=== PATIENT | male | born 1975 | race Hispanic/Latino ===

== ENCOUNTER 2017-10-06 22:30 | Inpatient (IN) | payer OTHER ==
[2017-10-06] MEDS ORDERED: Acetaminophen 500 MG TAB ONE (23:07)
--- NOTE | 2017-10-06 23:44 | RAD ---
PORTABLE UPRIGHT FRONTAL CHEST: Date: 10/06/17 COMPARISON: None. HISTORY: Cough. FINDINGS: There is interstitial opacity in bilateral perihilar regions. There is a suggestion of asymmetric int erstitial and alveolar opacity within the left upper lobe. No large volume pleural effusion or pneumo thorax. IMPRESSION: Findings suggesting air space disease in the left upper lobe, suspicious for infectious pneumonitis o r aspiration. Recommend follow-up PA and lateral imaging of the chest following treatment. POS: [facility]
[2017-10-06 23:48] LABS: Hematocrit 47.4 % (42.0-52.0); Red Blood Cell (RBC) Count 5.32 mill/uL (4.70-6.10); White Blood Cell (WBC) Count 5.1 thou/uL (4.8-10.8)
[2017-10-07 00:03] LABS: #Eosinphils 0.1 thou/uL (0.0-0.7); #Monocytes 0.3 thou/uL (0.11-0.59); #Neutrophils 3.7 thou/uL (1.40-6.50); %Eosinophils 1.1 % (0.0-10.0); %Lymphocytes 19.5 % (21.0-51.0); %Monocytes 6.2 % (0.0-10.0); Mean Platelet Volume 9.4 fL (7.4-10.4)
[2017-10-07 00:05] LABS: Lactic Acid - Sepsis 1.6 mmol/L (0.5-2.2)
[2017-10-07 00:08] LABS: Bilirubin Small (Negative); Blood, Urine Negative (Negative); Glucose, Urine (Dipstick) Negative (Negative); Ketone, Urine 40 mg/dL (Negative); Nitrite Negative (Negative); Protein, Urine (Dipstick) Negative (Neg-Trace)
[2017-10-07 00:09] LABS: ALT (SGPT) 23 U/L (8-55); AST (SGOT) 46 U/L (5-34); Alkaline Phosphatase 77 U/L (40-150); Anion Gap 14 mmol/L (10-20); BUN (Urea Nitrogen) 9 mg/dL (8.9-20.6); Bilirubin, Total 1.4 mg/dL (0.2-1.2); CK (CPK) 26 U/L (30-200); Calc. Creatinine Clearance 0 mL/min (70-130); Calcium 8.1 mg/dL (7.8-10.44); Carbon Dioxide 16 mmol/L (22-29); Chloride 108 mmol/L (98-107); Estimated GFR-MDRD Greater than 90; Globulin 4.8 g/dL (2.4-3.5); Protein, Total 7.8 g/dL (6.0-8.3)
[2017-10-07 00:13] LABS: Troponin I Less than 0.010 ng/mL (< 0.028)
[2017-10-07] MEDS ORDERED: Azithromycin 500 MG VIAL ONE (01:03)
[2017-10-07] MEDS ORDERED: Ketorolac Tromethamine 30 MG/ML VIAL ONE (01:03)
[2017-10-07] MEDS ORDERED: Morphine 4 MG/ML VIAL ONE (02:30)
[2017-10-07 02:50] LABS: Modified Allen's Test POSITIVE; Sodium 142 mmol/L (135-148)
[2017-10-07 02:51] LABS: Mode NC; Vent NO
[2017-10-07] MEDS ORDERED: Piperacillin/Tazobactam 4.5 GM in Sodium Chloride 0.9% 100 ML IVPB SCH (03:30)
--- NOTE | 2017-10-07 03:36 | PDOC.EVN ---
Event Note - Event Note Event Note: I personally evaluated the patient and discussed the management with Drs. Bird and Jim. I have reviewed the written H&P and it is repeated by me. I agree with the History, Examination, Assessment and Plan documented above with any addition or exceptions noted below. 1.) Patient has pneumonia with severe sepsis. Influenza test is negative. MAP is 80 following 30ml/kg bolus. ABG reviewed: Respiratory alkalosis with metabolic acidosis. Hypoxemia despite 4L/min via NC. Lactate is normal. Wells score is <2. D-dimer is neg. CXR consistent with bilat pneumonia. No effusion noted. Patient tachypneic but able to talk in sentences. No accessory muscle use on exam. Empiric antibiotics given in ER. Will add zosyn for psuedomonas coverage. While patient may worsen to the point of requiring intubation, I think with better oxygenation his tachycardia and tachypnea will resolve. Switch to oxygen mask supplementation. IV fluids. DVT and GI prophylaxis. 2.) Hep C. Chronic. recheck HIV/TB, both were negative several years ago. Patient is incarcerated, so at increased risk.
[2017-10-07] MEDS ORDERED: Sodium Chloride 0.9% 1,000 ML IV SCH ×3 (03:49→05:30)
[2017-10-07] MEDS ORDERED: Acetaminophen 325 MG TAB PO PRN (03:49)
[2017-10-07] MEDS ORDERED: Ondansetron ODT 4 MG TAB SL PRN (03:49)
[2017-10-07] MEDS ORDERED: Ondansetron HCl/PF 4 MG/2 ML Vial IVP PRN (03:49)
[2017-10-07] MEDS ORDERED: cefTRIAXone\\ROCEPHIN 2 GM in Sodium Chloride 0.9% 100 ML IVPB SCH (04:00)
[2017-10-07] MEDS ORDERED: Azithromycin 500 MG in Sodium Chloride 0.9% 250 ML 250 ML IVPB SCH ×2 (04:00→04:30)
[2017-10-07] MEDS: Sodium Chloride 0.9% 1,000 ML IV SCH ×3 (04:07→20:04)
[2017-10-07 05:28] LABS: LegU Control Bar Appear? YES (CONTROL BAR); LegionellaU Control Bkground? CLEAR/WHITE (CLR/WHITE)
[2017-10-07 06:42] LABS: Oxyhemoglobin 95.1 % (94.0-97.0); Sodium 142 mmol/L (135-148)
[2017-10-07 06:43] LABS: Mode NRM; Modified Allen's Test NOT DONE; Vent NO
[2017-10-07 07:35] LABS: Strp pneuU Control Background? CLEAR/WHITE (CLR/WHITE); Strp pneumo Control Bar Appear YES (CONTROL BAR)
--- NOTE | 2017-10-07 07:55 | HP-2 ---
DATE OF ADMISSION: 10/07/2017 ATTENDING: Dr. Tomás Ellis CODE STATUS: Full. RESIDENT: Pamela Davis M.D. HISTORIAN: Patient. CHIEF COMPLAINT: Cough, shortness of breath and dyspnea. HISTORY OF PRESENT ILLNESS: A 41-year-old male with a chief complaint of cough, shortness of breath and dyspnea for 5 days. The patient endorses subjective fevers as well. He states sometimes when he coughs, he coughs up blood. He also endorses night sweats and decreased p.o. intake and vomiting wi th meals. The patient also endorsed some watery diarrhea. He denies a history of TB, COPD, blood cl ots or asthma. He states he feels like he had the flu. He states he was not actually tested for the flu. The patient also endorsed some back pain, stated that when he took a deep breath in and out, i t hurt. ER: The patient received 50 mg IV of Toradol, he received 2 mg of morphine strength. The patient go t 2 DuoNeb treatments, azithromycin 500 mg in the ER, normal saline 1 liter. He also received Tyleno l extra strength and he received 6 liters of normal saline and Rocephin 2 grams IV. PAST MEDICAL HISTORY: Hepatitis C. PAST SURGICAL HISTORY: None. ALLERGIES: No known drug allergies. MEDICATIONS: None. FAMILY HISTORY: None. SOCIAL HISTORY: Former smoker over 10 years ago. Drug history; former cocaine and heroin use. Jerson ed alcohol use. REVIEW OF SYSTEMS: GENERAL: Endorsed fevers, endorsed decreased appetite, endorsed night sweats, decreased p.o. intake. RESPIRATORY: Endorses cough, shortness of breath. Denied congestion. HEENT: Denied nasal congestion, rhinorrhea, or sore throat. CARDIOVASCULAR: Denied chest pain, palpitations. GI: Denied nausea, endorsed some vomiting and diarrhea. Denied constipation, abdominal pain. : Denied dysuria, incontinence. SKIN: Denied rashes, lesions. MUSCULOSKELETAL: Denied pain or tenderness. NEURO: No weakness or numbness. PHYSICAL EXAMINATION: VITAL SIGNS: Blood pressure 102/61, pulse 125-140, respiratory rate 38, T-max 100-102.9, pulse ox 90 % on 4 liters. Current weight 100 kilos. GENERAL: Alert and oriented x4. Mildly distressed, appropriately interactive. EYES: PERRLA, EOMI. Conjunctivae within normal limits. ENT: Nasal mucosa and oropharynx dry. NECK: Supple, no lymphadenopathy, no thyromegaly. CARDIOVASCULAR: Tachycardic. No murmurs appreciated. Normal S1 and S2. RESPIRATORY: Respiratory rate increased effort. Subcostal retractions. Clear to auscultation bilat erally. SKIN: Warm and dry. ABDOMEN: Soft, nontender to palpation. Positive bowel sounds in all 4 quadrants. No mass or disten tion. EXTREMITIES: No clubbing or cyanosis. No edema. MUSCULOSKELETAL: Structure within normal limits. Tone within normal limits. NEUROLOGIC: No focal deficits. GCS of 15. LABORATORY DATA: CBC, 5.1, 16.1, 47.4, 114. CMP: 135, 3.3, 108, 69.88, glucose 107, AST and ALT 46 and 23, alkaline phosphatase 77, total protei n 1.4, calcium 8.1, albumin 3, total bilirubin 1.4. TSH 2.7. Influenza A and B negative. Lactic acid 1.6. UA negative for blood, protein, leukocyte esterase, nitrites and glucose, positive for ketones. ABG; pH 7.413, pCO2 24.3, pO2 67. Chest x-ray: Interstitial opacity in bilateral perihilar region with asymmetric interstitial and alison eolar opacities of the left upper lobe. Infectious pneumonitis or aspiration. D-dimer less than 0.27. ASSESSMENT AND PLAN: 1. Mr. Gonsales is a 41-year-old male with a past medical history of hep C who endorses a 5-day hist ory of cough, shortness of breath and dyspnea. He was admitted for acute hypoxic respiratory failure and sepsis secondary to a left upper lobe pneumonia. He was given azithromycin and Rocephin in the ER, which were continued. Zosyn was also added for additional empiric coverage. A CBC and BMP were ordered to be rechecked tomorrow morning. Blood and urine cultures were sent. He was provided with total of 6 liters in the ER. An additional fluid bolus was given once he reached the ICU unit. He w as also started on maintenance fluids of 170 mL an hour which also accounted for insensible . A repeat chest x-ray was ordered for the morning, Interferon gold was also ordered. Repeat ABG was or dered and the patient was placed on nonrebreather. HIV and RPR were also ordered. 2. Tinea corporis, Clotrimazole was ordered. 3. DVT prophylaxis; Lovenox. 4. Gastrointestinal prophylaxis, Protonix. DISPOSITION AND LENGTH OF STAY: 3-4 days. Symptomatic medications be provided. History and physical exam as well as management discussed with Dr. Ellis.
[2017-10-07] MEDS: Piperacillin/Tazobactam 3.375 GM in Sodium Chloride 0.9% 100 ML IVPB SCH ×4 (08:46→20:04)
[2017-10-07] MEDS: Enoxaparin Sodium 40 MG/0.4 ML SYRINGE SC SCH (08:47)
[2017-10-07] MEDS ORDERED: FLU VACC QS2017-18 36 mo. & older 0.5 ML SYRINGE IM ONE (09:00)
--- NOTE | 2017-10-07 09:15 | CON ---
DATE OF CONSULTATION: 10/07/2017 A 41-year-old inmate from [place], [place] presented with fever, chills, sweats, cough, and pneumonia. This morning he is hypoxic and he was placed on 50% Ventimask. Sats are 100%. He is having chills a nd sweats. VITAL SIGNS: Pulse is 110, blood pressure 130/80, O2 sat 100%. He is having difficulty breathing. He smoked in the past for 15 years, quit smoking many years ago. [facility]. He had previous history of pneumonia, but no h istory of TB or asthma. He said he has been coughing up some green sputum. PAST MEDICAL HISTORY: Pertinent otherwise for substance abuse, hepatitis C. Previous substance abus e and previous tobacco abuse. LIST OF MEDICATIONS: None apparently. ALLERGIES: None. REVIEW OF SYSTEMS: Unremarkable. PHYSICAL EXAMINATION: VITAL SIGNS: Saturations 100%, pulse 100, blood pressure 106/58, respirations 18. CHEST: Chest revealed decreased breath sounds, bilateral rhonchi. CARDIAC: Sinus tachycardia. ABDOMEN: Soft, no masses. LABORATORY: White count 5000, H&H 16 and 47, platelet count 115, pO2 is 93, pCO2 37.37, on 80%. His electrolytes are normal. Sodium is 135. X-ray shows bilateral pneumonia. IMPRESSION: 1. Pneumonia with respiratory failure. 2. Hepatitis C. 3. Previous tobacco and alcohol abuse. PLAN: I agree with present antibiotics. Steroids for community-acquired pneumonia to hasten resolut ion. Levaquin. We will follow while in the ICU. If his condition gets worse he may require intubation. Forty-five minutes critical care time.
--- NOTE | 2017-10-07 11:30 | RAD ---
PORTABLE UPRIGHT FRONTAL CHEST RADIOGRAPH: 10/07/2017 HISTORY: Pneumonia. COMPARISON: 10/06/2017 FINDINGS: Since the prior examination, there has been worsening of air space disease within the left perihilar region and left upper lobe. There is also new patchy air space disease in the right lung centrally a nd in the medial left base. No pneumothorax. No large volume pleural effusion. IMPRESSION: Nonspecific bilateral air space disease, left greater than right, worsened. Findings may signify an infectious process or pulmonary edema. Follow-up imaging to resolution advised. POS: [facility]
[2017-10-07] MEDS: Clotrimazole 1 % Cream 30 GM TUBE TOP SCH ×2 (12:55→20:05)
--- NOTE | 2017-10-07 17:26 | PDOC.EVN ---
Event Note - Event Note Event Note: Recent central line placement was performed without difficulty. Upon reviewing CXR for placement it is noted in the right Subclavian vein (placement verified by ultrasound; normal pulses). We discussed the need to reposition this due to risk for clotting and the patient refused. After discussing need for removal he also voiced that he would prefer to have it in place for blood draws. At this point I believe his prognosis is guarded and feel worsening of his respiratory status is likely, with tenuous IV access and the need for additional blood draws overnight, and I feel the benefit outweighs the risk of very short term malposition of the CVC and planned PICC placement as soon as possible. The patient is in agreement, and I will discuss this case with the oncoming attending, Dr. Ellis.
[2017-10-07] MEDS ORDERED: Ketorolac Tromethamine 30 MG/ML VIAL IVP SCH (17:45)
--- NOTE | 2017-10-07 19:39 | RAD ---
AP CHEST: History: Status post central line placement. Date: 10-07-17 Comparison: 10-07-17 FINDINGS: AP chest demonstrates cardiomegaly. Pulmonary vascular congestion is seen. There is diffuse airspace opacities throughout the lungs concerning for possible pulmonary edema or bilateral pneumonia. There has been placement of a right subclavian central line. The recently placed line migrates upward s over the right neck, distal tip not visualized. It certainly is not within the superior vena cava r ight atrium, but is upward migrating. IMPRESSION: 1. No evidence of right sided hemo or pneumothorax. 2. Distal aspect of the central line is out of the field in the right neck. POS: [facility]
--- NOTE | 2017-10-07 20:33 | CON ---
DATE OF CONSULTATION: 10/07/2017 REASON FOR CONSULTATION: Recent HIV infection with fever. HISTORY OF PRESENT ILLNESS: A 41-year-old patient who is incarcerated at a local state nursing home I believe near [place], who has a history of hepatitis C and has been ill for the past 5 days approximately with cough, dyspnea, and fever sometimes with hemoptysis, also with night sweats and liquid stool. No headaches, no visual symptoms. No sore throat, patient has chronic pruritic eruption in the distal upper extremities and no abdominal pain, no genitourinary symptoms, no joint symptoms. PAST MEDICAL HISTORY: Chronic hepatitis C, reportedly had a negative HIV test last year at the unit or maybe two years ago at the unit. PAST SURGICAL HISTORY: Negative surgical history. ALLERGIES: None. CURRENT MEDICATIONS: Include azithromycin, levofloxacin, and Zosyn. FAMILY HISTORY: Not available. SOCIAL HISTORY: Former smoker, former use of heroin and cocaine. 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 PHYSICAL EXAMINATION: VITAL SIGNS: T-max 99.5, blood pressure 128/88, pulse 115, respiratory rate 26 , O2 sat 99%. SKIN: Shows multiple tattoos. No areas of skin breakdown. The patient has a papular erythematous lesions in the distal aspect of his right and left hands and distal forearms which are chronic. Also, there was evidence of diffuse onychomycosis pretty much in all toenails and fingernails. No lymphadenopathy. HEENT: Ocular movements are conjugate. Oral cavity moist. NECK: Supple. LUNGS: With symmetric clear breath sounds. HEART: S1, S2, regular rate without murmurs. LUNGS: Pretty clear to auscultation and percussion. ABDOMEN: Soft and not distended. No organomegaly, bowel or bladder distention. GENITOURINARY: Normal. EXTREMITIES: No joint inflammatory activity. There is tenderness on palpation of the neck which has been there for the past 4-5 days approximately. NEUROLOGIC: He is oriented, follows commands. LABORATORY DATA: White cell count 5.1, hemoglobin 16, platelets 114, 72% neutrophils, 19% lymphocytes. Total lymphocyte count 1000 and pH 7.37, pCO2 of 30, pO2 of 93 with oxygen supplementation. Sodium 135, potassium 3.3, creatinine 0.88. Lactic acid 1.6, calcium 8.1. Bilirubin 1.4, AST 46, ALT 23, alkaline phosphatase 77, CK 26. Albumin 3.0. TSH 2.71. Urinalysis with negative blood. HIV, 1 and 2 antigen and antibodies with reflex confirmation pending. Legionella pneumophila and strep pneumoniae antigen negative thus far. Syphilis screen negative. Chest x-ray with airspace disease, left upper lobe with worsening. ASSESSMENT: Newly identified human immunodeficiency virus infection with fairly acute onset of respiratory symptoms, some hemoptysis and abnormal chest x -ray with a left upper lobe infiltrate. DISCUSSION: Differential diagnosis includes acute community-acquired pneumonia with the usual pathogens plus the possibility of tuberculosis as a significant concern. Fungal infection including pneumocystis pneumonia is another possibility. His total lymphocyte count is going to be depressed in an acute inflammatory process, but still it predicts CD4 cell count less than 200, so he was probably in a more advanced stage of his HIV infection. The skin lesions in the hands could be secondary to hepatitis C with cryoglobulinemia or porphyria cutanea tarda, Quantiferon, sputum for AFB, Cryptococcus antigen, CD4 cell count, HIV viral load, sputum for pneumocystis, PCR and Fungitel assay. Thromboembolism is another concern, but that is less likely. MTDD
[2017-10-07] MEDS: Ibuprofen 800 MG TAB PO PRN (23:45)
[2017-10-08] MEDS: Morphine 2 MG/ML SYRINGE SLOW IVP PRN ×4 (00:50→18:10)
[2017-10-08] MEDS: Piperacillin/Tazobactam 3.375 GM in Sodium Chloride 0.9% 100 ML IVPB SCH ×6 (01:26→20:55)
[2017-10-08] MEDS: Sodium Chloride 0.9% 1,000 ML IV SCH ×2 (05:00→21:00)
[2017-10-08 06:09] LABS: ALT (SGPT) 16 U/L (8-55); AST (SGOT) 37 U/L (5-34); Alkaline Phosphatase 58 U/L (40-150); Anion Gap 9 mmol/L (10-20); BUN (Urea Nitrogen) 10 mg/dL (8.9-20.6); Bilirubin, Total 1.2 mg/dL (0.2-1.2); Calc. Creatinine Clearance 170 mL/min (70-130); Calcium 7.2 mg/dL (7.8-10.44); Carbon Dioxide 20 mmol/L (22-29); Chloride 112 mmol/L (98-107); Estimated GFR-MDRD Greater than 90; Globulin 4.4 g/dL (2.4-3.5)
[2017-10-08 06:22] LABS: #Lymphocytes 0.6 thou/uL (1.20-3.40); #Monocytes 0.1 thou/uL (0.11-0.59); #Neutrophils 1.8 thou/uL (1.40-6.50); %Basophils 0.4 % (0.0-1.0); %Lymphocytes 24.8 % (21.0-51.0); %Monocytes 2.2 % (0.0-10.0); Hematocrit 42.8 % (42.0-52.0); Mean Platelet Volume 9.1 fL (7.4-10.4); Red Blood Cell (RBC) Count 4.73 mill/uL (4.70-6.10); White Blood Cell (WBC) Count 2.5 thou/uL (4.8-10.8)
--- NOTE | 2017-10-08 07:29 | OP ---
DATE OF ADMISSION: 10/07/2017 PREOPERATIVE DIAGNOSIS: Need for frequent lab draws and difficult IV access. POSTOPERATIVE DIAGNOSIS: Need for frequent lab draws and difficult IV access. PROCEDURE: Ultrasound-guided right internal jugular central venous catheter placement. Surgeon: Ishmael Hawkins MD; Chance Sam MD Anesthesia: 10 cc 1% lido without PROCEDURE IN DETAIL: The patient was prepped and draped in dorsal supine position. Under ultrasound guidance, the skin was anesthetized, accessed, and then a central triple-lumen central venous catheter was placed under ultrasound guidance using modified Seldinger technique prior to cannulation for dilation. Ultrasound was used to confirm intraluminal placement in the internal jugular vein of the wire. This was subsequently tied down and the chest x-ray was pending at the time of this diagnosis. No obvious immediate complications and this operative report will be addended if there are any updates. See event note from 10/07 by me for update of malposition. In brief, malposition to the right subclavian vein. Discussed with patient and he refuses both repositioning, replacement, or removal. Informed of risks, patient voices understanding. I personally feel short term benefit greater than risk due to the acuity of his condition. FAVIO
--- NOTE | 2017-10-08 07:52 | PDOC.FM ---
- Subjective Subjective: Patient states that his breathing has improved compared to prior to admission. He complains of pleuritic chest pain. - Objective MAR Reviewed: Yes Vital Signs & Weight: Vital Signs (12 hours) Temp Pulse Resp Pulse Ox 10/08/17 05:00 98.1 F 10/08/17 03:03 98 10/08/17 01:00 98.7 F 10/07/17 21:00 98.5 F 10/07/17 19:54 98.7 F 109 H 30 H 100 Weight Weight 102.4 kg Most Recent Monitor Data Heart Rate from ECG 102 NIBP 146/92 NIBP BP-Mean 102 Respiration from ECG 34 SpO2 98 I&O: 10/07/17 10/08/17 10/09/17 06:59 06:59 06:59 Intake Total 255 4578 Output Total 1150 3601 Balance -895 977 Result Diagrams: 10/08/17 05:25 10/08/17 05:25 <Vani Jo - Last Filed: 10/08/17 13:51> - Objective Vital Signs & Weight: Vital Signs (12 hours) Temp Pulse Resp Pulse Ox 10/08/17 16:00 97.6 F 10/08/17 12:00 97.4 F L 10/08/17 08:08 96 10/08/17 07:19 98.5 F 100 30 H 95 10/08/17 07:00 98.1 F Weight Weight 102.4 kg Most Recent Monitor Data Heart Rate from ECG 96 NIBP 149/86 NIBP BP-Mean 106 Respiration from ECG 8 SpO2 96 I&O: 10/07/17 10/08/17 10/09/17 06:59 06:59 06:59 Intake Total 255 4578 900 Output Total 1150 3601 870 Balance -895 977 30 Result Diagrams: 10/08/17 05:25 10/08/17 05:25 <Tatiana Aviles - Last Filed: 10/08/17 17:29> Phys Exam - Physical Examination Constitutional: NAD Respiratory: clear to auscultation bilateral Cardiovascular: RRR Gastrointestinal: soft, non-tender Musculoskeletal: no edema Psychiatric: normal affect, A&O x 3 <Vani Jo - Last Filed: 10/08/17 13:51> Dx/Plan (1) Acute respiratory failure with hypoxia Code(s): J96.01 - ACUTE RESPIRATORY FAILURE WITH HYPOXIA Status: Acute Plan: Improved. Pt currently maintaining saturations with 40% Venti mask. Will wean oxygen as tolerated (2) Atypical pneumonia Code(s): J18.9 - PNEUMONIA, UNSPECIFIED ORGANISM Status: Acute Plan: Will continue broad spectrum treatment. Respiratory culture/GS, PJP studies, quantiferon gold pending. (3) HIV (human immunodeficiency virus infection) Status: Acute Plan: New diagnosis. CD4 count pending. Will await studies. Dr. Waldrop consulted. (4) Severe sepsis Code(s): A41.9 - SEPSIS, UNSPECIFIED ORGANISM; R65.20 - SEVERE SEPSIS WITHOUT SEPTIC SHOCK Status: Resolved Plan: Improving. Vitals stable. UOP adequate. (5) Hepatitis C Code(s): B19.20 - UNSPECIFIED VIRAL HEPATITIS C WITHOUT HEPATIC COMA Status: Acute QualifierTitle: Viral hepatitis chronicity: chronic <Vani Jo - Last Filed: 10/08/17 13:51> Attending Addendum - Attending Addendum I personally evaluated the patient and discussed the management with Dr. Jo I agree with the History, Examination, Assessment and Plan documented above with any addition or exceptions noted below- Patient feeling a little better; SOB improved; occasional cough. No appetite. Afebrile VSS A/P: 1) B/l Pneumonia - less tachypenic today; continue current abx; appreciate pulmonary and ID input , 2) Newly diagnosed HIV- awaiting confirmatory test as well as CD4 count; plans as per ID, 3) Acute respiratory failure secondary to pneumonia- continue supportive care. <Tatiana Aviles - Last Filed: 10/08/17 17:29>
[2017-10-08] MEDS ORDERED: Ketorolac Tromethamine 30 MG/ML VIAL IVP SCH (08:00)
--- NOTE | 2017-10-08 08:01 | RAD ---
AP VIEW OF THE CHEST: INDICATION: History of pneumonia. COMPARISON: Prior exam dated 10/07/17. IMPRESSION: Airspace opacities involving both lungs are similar. A right IJ central venous catheter projecting i n the region of the right subclavian vein is unchanged in position. Recommend repositioning. Small pleural effusions persist. No pneumothorax is evident. POS: [facility]
[2017-10-08] MEDS: Enoxaparin Sodium 40 MG/0.4 ML SYRINGE SC SCH (08:28)
[2017-10-08] MEDS: Clotrimazole 1 % Cream 30 GM TUBE TOP SCH ×2 (08:37→20:55)
--- NOTE | 2017-10-08 12:00 | PRG ---
DATE OF SERVICE: 10/08/2017 SUBJECTIVE: He is just short of breath, slight cough. He has got no chest pain. OBJECTIVE: VITAL SIGNS: Sats are 96, pulse 104, blood pressure 137/91, respiration 32. CHEST: Reveals decreased breath sounds, no wheezing. CARDIAC: Normal S1, S2. LABORATORY DATA: Shows a white count of 2.4, H&H is 14 and 42, platelet count 106. His chemistry p rofile shows his electrolytes are normal. TSH is normal. He had serology done, which shows HIV pos itive. IMPRESSION: 1. Respiratory failure, bilateral pneumonia. 2. Human immunodeficiency virus and hepatitis, on steroids, Zosyn, Levaquin. PLAN: If his condition does not get any better, he may be intubated. Await sputum results. We will follow.
--- NOTE | 2017-10-08 12:31 | OP ---
DATE OF SERVICE: 10/08/2017 PREOPERATIVE DIAGNOSIS: Malpositioned central venous catheter placed in the right internal jugular vein, deviated to the right subclavian vein. POSTOPERATIVE DIAGNOSIS: Right internal jugular central venous catheter placed in the correct location. PROCEDURE: Central venous catheter placement. SURGEON: Artur Hawkins MD Resident: Vani Jo M.D. ANESTHESIA: Lidocaine 1% without epinephrine 5 mL INDICATIONS AND CONSENT: The patient was again consented for central venous catheter placement. We had again a discussion of the malpositioned central catheter. He this morning was amenable to repositioning.. PROCEDURE IN DETAIL: Under the usual sterile conditions including ChloraPrep x3 , a drape, cap, gown and mask, the previous catheter ties were removed. A wire was placed and the catheter withdrawn. Subsequently, a new central venous catheter was placed over the wire and confirmed and the SVC on x-ray. It was subsequently tied down. A Biopatch was placed. Tegaderm was placed and formal read of the x-ray was pending at the time of this dictation. No immediate complications. FAVIO
--- NOTE | 2017-10-08 13:27 | RAD ---
ONE VIEW CHEST: HISTORY: Status post central line placement. COMPARISON: 10/08/2017 FINDINGS: Portable upright chest demonstrates repositioning of what is presumed to be a right-sided internal ju gular central venous catheter. The distal tip now projects over the superior vena cava. Normal card iac silhouette. Patchy interstitial and alveolar opacities. The degree of opacification has not zeke nged. Limited evaluation of the lung apices. No definite evidence of pneumothorax. IMPRESSION: 1. Interval repositioning of right-sided central venous catheter. 2. Persistent interstitial and alveolar opacities. 3. Limited evaluation of the lung apices due to over-penetration. 4. No obvious pneumothorax. POS: [facility]
[2017-10-08] MEDS: Ibuprofen 800 MG TAB PO PRN (21:05)
[2017-10-09] MEDS: Morphine 2 MG/ML SYRINGE SLOW IVP PRN ×2 (00:04→05:23)
[2017-10-09] MEDS: Piperacillin/Tazobactam 3.375 GM in Sodium Chloride 0.9% 100 ML IVPB SCH ×6 (00:04→20:28)
[2017-10-09 04:58] LABS: #Lymphocytes 0.6 thou/uL (1.20-3.40); #Monocytes 0.2 thou/uL (0.11-0.59); #Neutrophils 5.5 thou/uL (1.40-6.50); %Basophils 0.2 % (0.0-1.0); %Eosinophils 0.1 % (0.0-10.0); %Lymphocytes 9.6 % (21.0-51.0); %Monocytes 2.4 % (0.0-10.0); Hematocrit 43.9 % (42.0-52.0); Mean Platelet Volume 8.7 fL (7.4-10.4); Red Blood Cell (RBC) Count 4.88 mill/uL (4.70-6.10); White Blood Cell (WBC) Count 6.2 thou/uL (4.8-10.8)
[2017-10-09] MEDS: Sodium Chloride 0.9% 1,000 ML IV SCH (05:17)
[2017-10-09 05:29] LABS: ALT (SGPT) 15 U/L (8-55); AST (SGOT) 32 U/L (5-34); Alkaline Phosphatase 55 U/L (40-150); Anion Gap 8 mmol/L (10-20); BUN (Urea Nitrogen) 14 mg/dL (8.9-20.6); Calc. Creatinine Clearance 176 mL/min (70-130); Calcium 7.5 mg/dL (7.8-10.44); Carbon Dioxide 20 mmol/L (22-29); Chloride 112 mmol/L (98-107); Estimated GFR-MDRD Greater than 90; Globulin 4.2 g/dL (2.4-3.5); Protein, Total 6.8 g/dL (6.0-8.3)
--- NOTE | 2017-10-09 07:45 | PDOC.FM ---
- Subjective Subjective: Patient doing better. His dyspnea has improved compared to prior. No adverse events overnight. - Objective MAR Reviewed: Yes Vital Signs & Weight: Vital Signs (12 hours) Temp Pulse Resp Pulse Ox 10/09/17 07:32 98.1 F 98 16 94 L 10/09/17 04:18 97 10/09/17 04:00 98.4 F 10/09/17 00:00 98.4 F 10/08/17 20:00 98.4 F 100 25 H 98 Weight Weight 101.8 kg Most Recent Monitor Data Heart Rate from ECG 84 NIBP 119/80 NIBP BP-Mean 89 Respiration from ECG 0 SpO2 97 I&O: 10/08/17 10/09/17 10/10/17 06:59 06:59 06:59 Intake Total 4578 3800 Output Total 3601 2120 Balance 977 1680 Result Diagrams: 10/09/17 04:12 10/09/17 04:12 <Vani Jo - Last Filed: 10/09/17 07:43> - Objective Vital Signs & Weight: Vital Signs (12 hours) Temp Pulse Resp BP Pulse Ox 10/09/17 10:11 98.2 F 113 H 18 95 10/09/17 09:40 98.2 F 113 H 18 131/90 95 10/09/17 08:00 98.3 F 10/09/17 07:32 98.1 F 98 16 94 L 10/09/17 04:18 97 10/09/17 04:00 98.4 F 10/09/17 00:00 98.4 F Weight Weight 101.8 kg Most Recent Monitor Data Heart Rate from ECG 120 NIBP 146/97 NIBP BP-Mean 108 Respiration from ECG 19 SpO2 97 I&O: 10/08/17 10/09/17 10/10/17 06:59 06:59 06:59 Intake Total 4578 3800 981 Output Total 3601 2120 750 Balance 977 1680 231 Result Diagrams: 10/09/17 04:12 10/09/17 04:12 <Tatiana Aviles - Last Filed: 10/09/17 10:45> Phys Exam - Physical Examination Constitutional: NAD HEENT: PERRLA Respiratory: clear to auscultation bilateral Cardiovascular: RRR Gastrointestinal: soft, non-tender Musculoskeletal: no edema Neurological: moves all 4 limbs <Vani Jo - Last Filed: 10/09/17 07:43> Dx/Plan (1) Acute respiratory failure with hypoxia Code(s): J96.01 - ACUTE RESPIRATORY FAILURE WITH HYPOXIA Status: Acute Plan: Improved. Pt currently maintaining saturations with 4L NC Will wean oxygen as tolerated (2) Atypical pneumonia Code(s): J18.9 - PNEUMONIA, UNSPECIFIED ORGANISM Status: Acute Plan: Will continue broad spectrum treatment. Respiratory culture/GS, PJP studies, quantiferon gold pending. (3) HIV (human immunodeficiency virus infection) Status: Acute Plan: New diagnosis. CD4 count pending. Will await studies. Dr. Waldrop consulted. (4) Hepatitis C Code(s): B19.20 - UNSPECIFIED VIRAL HEPATITIS C WITHOUT HEPATIC COMA Status: Acute QualifierTitle: Viral hepatitis chronicity: chronic <Vani Jo - Last Filed: 10/09/17 07:43> Attending Addendum - Attending Addendum I personally evaluated the patient and discussed the management with Dr. Jo I agree with the History, Examination, Assessment and Plan documented above with any addition or exceptions noted below- Patient feeling better; SOB improved. Afebrile VSS A/P: 1) Acute respiratory failure- improved; continue supportive care; wean O2 as tolerated. 2) Pneumonia- continue IV abx; wean O2 as tolerated. 3) HIV (+)- awaiting CD4 count and other tests. <Tatiana Aviles - Last Filed: 10/09/17 10:45>
[2017-10-09] MEDS: Enoxaparin Sodium 40 MG/0.4 ML SYRINGE SC SCH (08:09)
[2017-10-09] MEDS: Clotrimazole 1 % Cream 30 GM TUBE TOP SCH ×2 (08:11→20:25)
[2017-10-09] MEDS: Ibuprofen 800 MG TAB PO PRN (08:17)
--- NOTE | 2017-10-09 09:08 | RAD ---
SINGLE VIEW OF THE CHEST: Comparison: 10-08-17 History: Pneumonia. FINDINGS: Single view of the chest shows a cardiomediastinal silhouette which is upper limits of normal in size . There is a central venous catheter with its tip in the superior vena cava. Multifocal opacities are seen in the lungs, unchanged, consistent with multifocal pneumonia. IMPRESSION: Stable multifocal pneumonia. POS: [facility]
--- NOTE | 2017-10-09 11:49 | PRG ---
DATE OF SERVICE: 10/09/2017 SUBJECTIVE: This morning, he is awake, alert, responsive. OBJECTIVE: VITAL SIGNS: Sats are 4 liters 97%, blood pressure 119/80, temperature 98. CHEST: Chest reveals decreased breath sounds, no wheezing. CARDIAC: Normal S1, S2. No gallops. ABDOMEN: Soft, no masses. LABORATORY DATA: White count 6000, H&H is 14 and 43, platelet count 130. Electrolytes are normal. Albumin is 2.6. X-RAY FINDINGS: X-ray shows improvement in bilateral pulmonary infiltrates. IMPRESSION: 1. Bilateral bronchopneumonia. 2. Human immunodeficiency virus. 3. Hepatitis C. PLAN: He can probably be transferred out of the ICU. His sputum was nondiagnostic. I may consider switching him over to Levaquin. Continue steroids, supportive care. We will follow.
[2017-10-09 13:27] LABS: Absolute CD4 8 /uL (359-1519); Lymphocytes/Gated Cell Count 0.5 x10E3/uL (0.7-3.1)
[2017-10-09] MEDS ORDERED: ISOVUE-370 76%-LOCM 1 ML ONE (13:56)
[2017-10-09 14:21] LABS: HIV 1 Antibody Multi-Spot Positive (Negative); HIV 2 Antibody Multi-Spot Negative (Negative)
[2017-10-09] MEDS: Raltegravir Potassium 400 MG TAB PO SCH (20:27)
[2017-10-09] MEDS: Morphine 4 MG/ML VIAL SLOW IVP PRN (20:27)
--- NOTE | 2017-10-09 21:44 | CT ---
CT OF CHEST WITH CONTRAST 10/09/17 HISTORY: Multifocal bilateral pneumonia. FINDINGS: Diffuse abnormal alveolar opacification present within each lung in addition to interstitial septal t hickening. The thoracic aorta is nonaneurysmal. There is no significant effusion or evidence of pneum othorax. Regional skeletal structures are intact. No thoracic adenopathy. Prominence of the spleen is noted within the imaged upper abdomen. Partially imaged right internal jugular venous catheter is se en. Incidental note of chronic, corticated nondisplaced fracture deformity involving posterior right 7th rib fracture. IMPRESSION: Diffuse abnormal alveolar opacities of each lung compatible with provided clinical history of atypica l pneumonia. There is no associated effusion of significance or pneumothorax. Recommend radiographic followup to resolution. POS: [facility]
--- NOTE | 2017-10-09 21:59 | PRG ---
DATE OF SERVICE: 10/09/2017 SUBJECTIVE: Still dyspneic and coughing sometimes with some sputum production, light yellow. No hem optysis, no headaches, visual symptoms or abdominal pain. No chest pain. Voiding without difficulty . Some diarrhea. OBJECTIVE: VITAL SIGNS: T-max 98.4, BP 129/86, pulse 100-113, breathing at 24 times a minute, O2 sat 91% with 5 liters nasal cannula. HEENT: Ocular movements are conjugate. Oral cavity moist. No thrush. NECK: Supple. LUNGS: Symmetric air entry. No obvious crackles or wheezing, diminished breath sounds at bases. CARDIOVASCULAR: S1, S2, regular rate. ABDOMEN: Soft and not distended. EXTREMITIES: Moves all extremities equally. LABORATORY DATA: White cell count 6.2, hemoglobin 14.8, platelets 130, 87% neutrophils. Sodium 137, creatinine 0.79. Liver profile normal. Albumin 2.6. CD4 cell count 8. Pneumocystis smear was neg ative. The pneumocystis DNA PCR send-out test has not been collected. Fungitell is pending. Quanti feron is pending. ASSESSMENT: Newly identified HIV infection with severe immunosuppression and CD4 less than 50. Diff use multifocal pneumonitis without clear-cut improvement thus far. Patient is on for fairly high dos es of corticosteroids which are suppressing inflammatory response. Pneumocystis still in the differe ntial diagnosis, the sputum direct smear has a very low sensitivity and PCR tests is a better test, b ut sample has not been collected, insufficient amount was submitted to test yet. We will obtain a CT of chest and we will consider starting antipneumocystis therapy soon. May need BAL with bronchoalve olar lavage. Check cryptococcus antigen, histoplasma antigen and CMV DNA PCR.
[2017-10-10] MEDS: Ibuprofen 800 MG TAB PO PRN ×2 (01:03→08:28)
[2017-10-10] MEDS: Piperacillin/Tazobactam 3.375 GM in Sodium Chloride 0.9% 100 ML IVPB SCH ×6 (01:03→21:04)
[2017-10-10] MEDS: Morphine 4 MG/ML VIAL SLOW IVP PRN ×4 (01:23→21:06)
[2017-10-10 05:54] LABS: #Lymphocytes 0.7 thou/uL (1.20-3.40); #Monocytes 0.2 thou/uL (0.11-0.59); #Neutrophils 4.4 thou/uL (1.40-6.50); %Basophils 0.1 % (0.0-1.0); %Lymphocytes 12.8 % (21.0-51.0); %Monocytes 4.5 % (0.0-10.0); Hematocrit 42.8 % (42.0-52.0); Mean Platelet Volume 8.9 fL (7.4-10.4); Red Blood Cell (RBC) Count 4.82 mill/uL (4.70-6.10); White Blood Cell (WBC) Count 5.3 thou/uL (4.8-10.8)
[2017-10-10 06:01] LABS: ALT (SGPT) 19 U/L (8-55); AST (SGOT) 33 U/L (5-34); Alkaline Phosphatase 46 U/L (40-150); Anion Gap 7 mmol/L (10-20); BUN (Urea Nitrogen) 18 mg/dL (8.9-20.6); Bilirubin, Total 1.1 mg/dL (0.2-1.2); Calc. Creatinine Clearance 171 mL/min (70-130); Carbon Dioxide 23 mmol/L (22-29); Chloride 111 mmol/L (98-107); Estimated GFR-MDRD Greater than 90; Protein, Total 6.6 g/dL (6.0-8.3)
--- NOTE | 2017-10-10 07:10 | PDOC.FM ---
- Subjective Subjective: Patient states that his dyspnea is stable. No adverse events overnight. - Objective MAR Reviewed: Yes Vital Signs & Weight: Vital Signs (12 hours) Temp Pulse Resp BP Pulse Ox 10/10/17 04:00 97.4 F L 76 20 138/83 97 10/10/17 00:00 97.7 F 88 20 153/94 H 97 10/09/17 20:00 97.9 F 92 18 137/93 H 93 L Weight Weight 101.8 kg Most Recent Monitor Data Heart Rate from ECG 120 NIBP 146/97 NIBP BP-Mean 108 Respiration from ECG 19 SpO2 97 I&O: 10/09/17 10/10/17 10/11/17 06:59 06:59 06:59 Intake Total 3800 1461 Output Total 2120 750 Balance 1680 711 Result Diagrams: 10/10/17 05:15 10/10/17 05:15 <Vani Jo - Last Filed: 10/10/17 12:19> - Objective Vital Signs & Weight: Vital Signs (12 hours) Temp Pulse Resp BP Pulse Ox 10/10/17 08:00 97.5 F L 84 20 95 10/10/17 07:45 97.5 F L 84 20 155/96 H 98 Weight Weight 101.8 kg Most Recent Monitor Data Heart Rate from ECG 120 NIBP 146/97 NIBP BP-Mean 108 Respiration from ECG 19 SpO2 97 I&O: 10/09/17 10/10/17 10/11/17 06:59 06:59 06:59 Intake Total 3800 1461 480 Output Total 2120 750 Balance 1680 711 480 Result Diagrams: 10/10/17 05:15 10/10/17 05:15 <Tatiana Aviles - Last Filed: 10/10/17 18:01> Phys Exam - Physical Examination Constitutional: NAD Respiratory: clear to auscultation bilateral Cardiovascular: RRR Gastrointestinal: soft, non-tender Musculoskeletal: no edema <Vani Jo - Last Filed: 10/10/17 12:19> Dx/Plan (1) Acute respiratory failure with hypoxia Code(s): J96.01 - ACUTE RESPIRATORY FAILURE WITH HYPOXIA Status: Acute Plan: Resolving. Pt currently maintaining saturations with 4L NC Will wean oxygen as tolerated (2) Atypical pneumonia Code(s): J18.9 - PNEUMONIA, UNSPECIFIED ORGANISM Status: Acute Plan: Will continue broad spectrum treatment. Treatment with IV bactrim and PO prednisone started to cover for PJP (3) AIDS (acquired immunodeficiency syndrome), CD4 <=200/<=14% Code(s): B20 - HUMAN IMMUNODEFICIENCY VIRUS [HIV] DISEASE Status: Chronic Plan: CD4 count 8. Pt started on antiretroviral therapy, by Dr. Waldrop. Pt on currently on daily PO levaquin for pneumonia which should be sufficient for MAC prophylaxis. Will watch for immune reconstitution syndrome. (4) Hepatitis C Code(s): B19.20 - UNSPECIFIED VIRAL HEPATITIS C WITHOUT HEPATIC COMA Status: Acute QualifierTitle: Viral hepatitis chronicity: chronic Plan: Not currently receiving treatment. - Plan Plan: Disposition: stable. <Vani Jo - Last Filed: 10/10/17 12:19> Attending Addendum - Attending Addendum I personally evaluated the patient and discussed the management with Dr. Jo I agree with the History, Examination, Assessment and Plan documented above with any addition or exceptions noted below- Patient reports decreased SOB. Afebrile VSS A/P: 1) Acute respiratory failure secondary to pneumonia- resolving ; continue to wean O2 as tolerated, 2) Bilateral pneumonia- cultures negative to date; PCP PCR ordered; Continue levaquin and bactrim; wean O2 as tolerated, 3 ) Newly diagnosed HIV- appreciate assistance from ID; started on antiretroviral therapy; CD4 = 8. CMV and Toxo pending <Tatiana Aviles - Last Filed: 10/10/17 18:01>
[2017-10-10] MEDS: Emtricitabine/Tenofovir 200-300 MG TAB PO SCH (08:27)
[2017-10-10] MEDS: Raltegravir Potassium 400 MG TAB PO SCH ×2 (08:27→21:05)
--- NOTE | 2017-10-10 08:27 | RAD ---
PORTABLE CHEST: History: Pneumonia. Follow up. Comparison: 10-09-17 FINDINGS/IMPRESSION: Bilateral lung infiltrates again noted without significant change from yesterday. POS: [facility]
[2017-10-10] MEDS: Clotrimazole 1 % Cream 30 GM TUBE TOP SCH ×2 (08:28→21:05)
[2017-10-10] MEDS: Enoxaparin Sodium 40 MG/0.4 ML SYRINGE SC SCH (08:28)
--- NOTE | 2017-10-10 10:13 | PRG ---
DATE OF SERVICE: 10/10/2017 SUBJECTIVE: Caleb Gonsales this morning he is better. He is less short of breath and less cough. He was started on Bactrim yesterday, which probably is appropriate. PHYSICAL EXAMINATION: VITAL SIGNS: Blood pressure 150/96, sats 98%, temperature 97. CHEST: Decreased breath sounds without any wheezing. CARDIAC: Normal S1, S2. IMPRESSION: 1. Diffuse right-sided infiltrate. 2. Respiratory failure. 3. Human immunodeficiency virus. PLAN: Continue antibiotics as per Infectious Disease, p.o. prednisone. May consider doing a bronchoscopy with lavage.
[2017-10-10 10:20] LABS: LOG10 HIV-1 RNA 6.164 (.)
[2017-10-11] MEDS: Piperacillin/Tazobactam 3.375 GM in Sodium Chloride 0.9% 100 ML IVPB SCH ×6 (01:35→20:33)
[2017-10-11] MEDS: Morphine 4 MG/ML VIAL SLOW IVP PRN ×3 (03:03→17:19)
[2017-10-11 05:41] LABS: #Monocytes 0.4 thou/uL (0.11-0.59); #Neutrophils 4.9 thou/uL (1.40-6.50); %Basophils 0.1 % (0.0-1.0); %Eosinophils 0.2 % (0.0-10.0); %Lymphocytes 15.6 % (21.0-51.0); %Monocytes 6.1 % (0.0-10.0); Hematocrit 43.7 % (42.0-52.0); Mean Platelet Volume 8.8 fL (7.4-10.4); Red Blood Cell (RBC) Count 4.95 mill/uL (4.70-6.10); White Blood Cell (WBC) Count 6.3 thou/uL (4.8-10.8)
[2017-10-11 05:57] LABS: ALT (SGPT) 33 U/L (8-55); AST (SGOT) 41 U/L (5-34); Alkaline Phosphatase 48 U/L (40-150); Anion Gap 7 mmol/L (10-20); BUN (Urea Nitrogen) 17 mg/dL (8.9-20.6); Bilirubin, Total 0.8 mg/dL (0.2-1.2); Calc. Creatinine Clearance 149 mL/min (70-130); Carbon Dioxide 24 mmol/L (22-29); Chloride 108 mmol/L (98-107); Estimated GFR-MDRD 89; Globulin 3.8 g/dL (2.4-3.5); Protein, Total 6.5 g/dL (6.0-8.3)
[2017-10-11] MEDS: predniSONE 20 MG TAB PO SCH (08:09)
[2017-10-11] MEDS: Enoxaparin Sodium 40 MG/0.4 ML SYRINGE SC SCH (08:09)
[2017-10-11] MEDS: Emtricitabine/Tenofovir 200-300 MG TAB PO SCH (08:09)
[2017-10-11] MEDS: Raltegravir Potassium 400 MG TAB PO SCH ×2 (08:09→20:34)
[2017-10-11] MEDS: Clotrimazole 1 % Cream 30 GM TUBE TOP SCH ×2 (08:10→20:35)
[2017-10-11] MEDS: Ibuprofen 800 MG TAB PO PRN ×2 (08:12→17:19)
--- NOTE | 2017-10-11 08:35 | PDOC.FM ---
- Subjective Subjective: Pt still requiring oxygen to maintain saturations. No adverse events overnight. - Objective MAR Reviewed: Yes Vital Signs & Weight: Vital Signs (12 hours) Temp Pulse Resp BP Pulse Ox 10/11/17 08:00 97.5 F L 77 16 143/88 H 92 L 10/11/17 04:55 98.2 F 84 16 137/91 H 92 L 10/11/17 01:56 91 L 10/11/17 00:34 98.1 F 77 16 138/92 H 91 L Weight Weight 100.244 kg Most Recent Monitor Data Heart Rate from ECG 120 NIBP 146/97 NIBP BP-Mean 108 Respiration from ECG 19 SpO2 97 I&O: 10/10/17 10/11/17 10/12/17 06:59 06:59 06:59 Intake Total 1461 720 Output Total 750 675 Balance 711 45 Result Diagrams: 10/11/17 05:00 10/11/17 05:00 <Vani Jo - Last Filed: 10/11/17 11:03> - Objective Vital Signs & Weight: Vital Signs (12 hours) Pulse Ox 10/12/17 03:58 94 L Weight Weight 101.2 kg Most Recent Monitor Data Heart Rate from ECG 120 NIBP 146/97 NIBP BP-Mean 108 Respiration from ECG 19 SpO2 97 I&O: 10/11/17 10/12/17 10/13/17 06:59 06:59 06:59 Intake Total 720 2390 Output Total 675 1350 Balance 45 1040 Result Diagrams: 10/12/17 06:15 10/12/17 06:15 <Tatiana Aviles - Last Filed: 10/12/17 10:20> Dx/Plan (1) Acute respiratory failure with hypoxia Code(s): J96.01 - ACUTE RESPIRATORY FAILURE WITH HYPOXIA Status: Acute Plan: Resolving. Pt currently maintaining saturations with 4L NC Contnue to wean oxygen as tolerated. (2) Atypical pneumonia Code(s): J18.9 - PNEUMONIA, UNSPECIFIED ORGANISM Status: Acute Plan: Will continue broad spectrum treatment. Treatment with IV bactrim and PO prednisone started to cover for PJP (3) AIDS (acquired immunodeficiency syndrome), CD4 <=200/<=14% Code(s): B20 - HUMAN IMMUNODEFICIENCY VIRUS [HIV] DISEASE Status: Chronic Plan: CD4 count 8. Pt started on antiretroviral therapy, by Dr. Waldrop. Pt currently on daily PO levaquin for pneumonia which should be sufficient for MAC prophylaxis. Will watch for immune reconstitution syndrome. (4) Hepatitis C Code(s): B19.20 - UNSPECIFIED VIRAL HEPATITIS C WITHOUT HEPATIC COMA Status: Acute QualifierTitle: Viral hepatitis chronicity: chronic Plan: Not currently receiving treatment. (5) Hypokalemia Code(s): E87.6 - HYPOKALEMIA Status: Acute Plan: Potassium 3.2 today. Will replace PO and recheck in AM <Vani Jo - Last Filed: 10/11/17 11:03> Attending Addendum - Attending Addendum I personally evaluated the patient and discussed the management with Dr. Jo on 10/11/17 I agree with the History, Examination, Assessment and Plan documented above with any addition or exceptions noted below- Patient without complaints. Afebrile VSS A/P: 1) Bilateral pneumonia- continue current IV Abx; plan for bronchoscopy today. 2) HIV/AIDs- continue antiretrovirals. <Tatiana Aviles - Last Filed: 10/12/17 10:20>
[2017-10-11] MEDS ORDERED: Potassium Chloride 20 MEQ TAB PO SCH (08:45)
[2017-10-11] MEDS ORDERED: Lidocaine 4% PF 5 ML AMP NEB SCH (09:30)
[2017-10-11] MEDS ORDERED: Sodium Chloride 0.9% 1,000 ML IV SCH (09:30)
--- NOTE | 2017-10-11 09:41 | PRG ---
DATE OF SERVICE: 10/11/2017 This morning he is awake, alert, responsive. PHYSICAL EXAMINATION: VITAL SIGNS: Blood pressure 130/80, sats 92 on 4 liters, respirations 16, temperature 97. CHEST: Chest reveals bilateral crackles. CARDIAC: Normal S1, S2. ABDOMEN: Soft, no masses. White count 6, H&H 9 and 43, platelet count 130. Electrolytes are normal. IMPRESSION: 1. Human immunodeficiency virus. 2. Hepatitis C. 3. Bilateral pneumonia. Unable to get any sputum. Diagnostic bronchoscopy and lavage is going to be done. Further recommend ation after above.
[2017-10-11] MEDS ORDERED: Midazolam HCl 2 mg/2 ml Vial ONE ×2 (11:49)
[2017-10-11] MEDS ORDERED: Lidocaine 1% (PF) 30 ML VIAL ONE (11:49)
[2017-10-11] MEDS ORDERED: Fentanyl 100 MCG/2 ML VIAL ONE (11:49)
[2017-10-11] MEDS ORDERED: Benzocaine 20% Spray 60 ML CAN ONE (11:51)
--- NOTE | 2017-10-11 13:04 | OP ---
DATE OF PROCEDURE: 10/11/2017 SURGEON: Dr. Zeeshan Curry PROCEDURE: Bronchoscopy with transbronchial biopsy. INDICATIONS: Human immunodeficiency virus, immunocompromised, diffuse pulmonary infiltrates, rule ou t pneumocystis, rule out tuberculosis, fungus and malignancy. POST-BRONCHOSCOPY DIAGNOSIS: Human immunodeficiency virus, immunocompromised, diffuse pulmonary infi ltrates, rule out pneumocystis, rule out tuberculosis, fungus and malignancy. PROCEDURE IN DETAIL: After informed consent, the patient received 2 of Versed and 50 of fentanyl. H e received DuoNeb, along with 4% lidocaine prior to the procedure. His right nostril was prepped wit h lidocaine. The flexible video bronchoscope was then passed via the right nostril with 2 of Versed and 50 of fentanyl on board. Pharynx, upper pharynx, and vocal cords were visualized and unremarkabl e. On entering the trachea, this was normal. Radha was sharp. Right lung was inspected initially. The right upper and right middle and right lower lobe was unremarkable. No endobronchial obstructi on or blood was seen. The left lung was inspected thereafter and also was unremarkable. No endobron chial obstruction or pus was seen. The area of the right upper lung and right middle lobe was lavage d with normal saline, a total of 60 mL. The left lung also lavaged with normal saline, a total of 20 mL. Thereafter, a fluoroscopy, transbronchial biopsies from the right upper lobe anterior segment w as done x2. There was minimal bleeding which was controlled with instillation of epinephrine 1:10,00 0. The washings will be sent for AFB smear and culture, fungal smear and culture, routine Gram stain and C&S and a pneumocystis stain. Biopsies sent for histopathology. The patient tolerated the proc edure well. The results will be made available to the patient. Further recommendations after above.
[2017-10-12] MEDS: Morphine 4 MG/ML VIAL SLOW IVP PRN ×2 (00:10→11:44)
[2017-10-12] MEDS: Piperacillin/Tazobactam 3.375 GM in Sodium Chloride 0.9% 100 ML IVPB SCH ×6 (00:11→20:51)
[2017-10-12] MEDS: Ondansetron ODT 4 MG TAB PO PRN ×2 (01:13→08:23)
[2017-10-12 06:39] LABS: #Lymphocytes 0.8 thou/uL (1.20-3.40); #Monocytes 0.4 thou/uL (0.11-0.59); #Neutrophils 4.6 thou/uL (1.40-6.50); %Basophils 0.1 % (0.0-1.0); %Eosinophils 0.8 % (0.0-10.0); %Lymphocytes 13.5 % (21.0-51.0); %Monocytes 6.5 % (0.0-10.0); Mean Platelet Volume 8.8 fL (7.4-10.4); Red Blood Cell (RBC) Count 4.86 mill/uL (4.70-6.10); White Blood Cell (WBC) Count 5.8 thou/uL (4.8-10.8)
[2017-10-12 06:55] LABS: ALT (SGPT) 32 U/L (8-55); AST (SGOT) 33 U/L (5-34); Alkaline Phosphatase 45 U/L (40-150); Anion Gap 5 mmol/L (10-20); BUN (Urea Nitrogen) 10 mg/dL (8.9-20.6); Bilirubin, Total 0.7 mg/dL (0.2-1.2); Calc. Creatinine Clearance 155 mL/min (70-130); Calcium 7.5 mg/dL (7.8-10.44); Carbon Dioxide 25 mmol/L (22-29); Chloride 109 mmol/L (98-107); Estimated GFR-MDRD Greater than 90; Globulin 3.7 g/dL (2.4-3.5); Protein, Total 6.1 g/dL (6.0-8.3)
--- NOTE | 2017-10-12 07:11 | PDOC.FM ---
- Subjective Subjective: Patient breathing heavily on 2L O2. No complaints at this time. Reports that he had some nausea after the bronch, but has had no other problems. He has been tolerating PO well. Denies CP. - Objective Vital Signs & Weight: Vital Signs (12 hours) Temp Pulse Resp BP Pulse Ox 10/12/17 03:58 94 L 10/11/17 20:00 98.1 F 73 20 138/87 94 L Weight Weight 101.2 kg Most Recent Monitor Data Heart Rate from ECG 120 NIBP 146/97 NIBP BP-Mean 108 Respiration from ECG 19 SpO2 97 I&O: 10/11/17 10/12/17 10/13/17 06:59 06:59 06:59 Intake Total 720 2390 Output Total 675 1350 Balance 45 1040 Result Diagrams: 10/12/17 06:15 10/12/17 06:15 <Shira Fletcher - Last Filed: 10/12/17 07:09> - Objective Vital Signs & Weight: Vital Signs (12 hours) Pulse Ox 10/12/17 03:58 94 L Weight Weight 101.2 kg Most Recent Monitor Data Heart Rate from ECG 120 NIBP 146/97 NIBP BP-Mean 108 Respiration from ECG 19 SpO2 97 I&O: 10/11/17 10/12/17 10/13/17 06:59 06:59 06:59 Intake Total 720 2390 Output Total 675 1350 Balance 45 1040 Result Diagrams: 10/12/17 06:15 10/12/17 06:15 <Tatiana Aviles - Last Filed: 10/12/17 10:23> Phys Exam - Physical Examination Constitutional: NAD On 2L O2 HEENT: moist MMs, sclera anicteric Neck: no nodes, supple Respiratory: no wheezing, clear to auscultation bilateral Cardiovascular: RRR, no significant murmur Musculoskeletal: no edema, pulses present Neurological: non-focal, moves all 4 limbs Psychiatric: normal affect, A&O x 3 Skin: no rash <Shira Fletcher - Last Filed: 10/12/17 07:09> Dx/Plan (1) Acute respiratory failure with hypoxia Code(s): J96.01 - ACUTE RESPIRATORY FAILURE WITH HYPOXIA Status: Acute Plan: This is likely 2/2 pneumonia Improving, patient currently satting 92-94% on 2L O2 overnight. -Dr. Curry with Pulm consulted, appreciate recs -Wean O2 as tolerated (2) Atypical pneumonia Code(s): J18.9 - PNEUMONIA, UNSPECIFIED ORGANISM Status: Acute Plan: Concern for PJP in the setting of AIDS with CD4 of 8. Bronchoscopy done on 10/11 to confirm diagnosis -Dr. Waldrop with ID consulted, appreciate recs -Broad spectrum abx coverage with Zosyn day 5, Levaquin day 5 -Bactrim IV and prednisone to cover for PJP -f/u cytology/biopsy results from bronch (3) AIDS (acquired immunodeficiency syndrome), CD4 <=200/<=14% Code(s): B20 - HUMAN IMMUNODEFICIENCY VIRUS [HIV] DISEASE Status: Chronic Plan: New diagnosis of HIV CD4 count of 8 -Dr. Waldrop with ID consulted, appreciate recs -Levaquin will cover for MAC ppx, but will need azithromycin when this is d/c'd -Bactrim for concern for PJP -HAART therapy with Raltegravir and Truvada (4) Hepatitis C Code(s): B19.20 - UNSPECIFIED VIRAL HEPATITIS C WITHOUT HEPATIC COMA Status: Acute QualifierTitle: Viral hepatitis chronicity: chronic Hepatic coma status: without hepatic coma Qualified Code(s): B18.2 - Chronic viral hepatitis C Plan: Not currently receiving treatment. Asymptomatic at this time. Will need outpatient f/u (5) Hypokalemia Code(s): E87.6 - HYPOKALEMIA Status: Acute Plan: Potassium improving at 3.4 today, will replace with PO potassium. <Shira Fletcher - Last Filed: 10/12/17 07:09> Attending Addendum - Attending Addendum I personally evaluated the patient and discussed the management with Dr. Fletcher I agree with the History, Examination, Assessment and Plan documented above with any addition or exceptions noted below- Patinet reports feeling a little more SOB today and coughing up some blood. Afebrile VSS. A/P: Bilateral pneumonia- s/p bronch yesterday. Cultures pending. Continue current abx. 2) HIV/ AIDs- continue current meds. <Tatiana Aviles - Last Filed: 10/12/17 10:23>
[2017-10-12] MEDS: predniSONE 20 MG TAB PO SCH (08:23)
[2017-10-12] MEDS: Clotrimazole 1 % Cream 30 GM TUBE TOP SCH ×2 (08:24→20:51)
[2017-10-12] MEDS: Raltegravir Potassium 400 MG TAB PO SCH ×2 (08:25→20:52)
[2017-10-12] MEDS: Emtricitabine/Tenofovir 200-300 MG TAB PO SCH (08:25)
[2017-10-12] MEDS: Enoxaparin Sodium 40 MG/0.4 ML SYRINGE SC SCH (08:27)
[2017-10-12] MEDS ORDERED: Potassium Chloride 20 MEQ TAB PO SCH (09:00)
[2017-10-12] MEDS: Ondansetron ODT 8 MG TAB SL PRN ×2 (10:09→21:23)
--- NOTE | 2017-10-12 14:50 | PRG ---
DATE OF SERVICE: 10/12/2017 SUBJECTIVE: Awake, alert, responsive. He is less short breath sounds. OBJECTIVE: VITAL SIGNS: Sats 94 on 2 L, temperature is 98, respiratory rate 20, pulse 72, blood pressure 130/87 . CHEST: Without cough. He has decreased breath sounds without any wheezing. CARDIAC: Normal S1-S2. No gallops. Electrolytes unremarkable. IMPRESSION: 1. HIV. 2. Hepatitis C. 3. Pneumonia. PLAN: Awaiting results of the bronch pneumocystis stain and culture, etc. Transbronchial biopsies, antibiotics per Infectious Disease. I will follow.
[2017-10-13] MEDS: Piperacillin/Tazobactam 3.375 GM in Sodium Chloride 0.9% 100 ML IVPB SCH ×4 (00:38→15:01)
[2017-10-13 06:12] LABS: #Basophils 0.1 thou/uL (0.0-0.2); #Eosinphils 0.2 thou/uL (0.0-0.7); #Lymphocytes 0.6 thou/uL (1.20-3.40); #Monocytes 0.2 thou/uL (0.11-0.59); #Neutrophils 3.2 thou/uL (1.40-6.50); %Basophils 1.6 % (0.0-1.0); %Eosinophils 5.3 % (0.0-10.0); %Lymphocytes 13.9 % (21.0-51.0); %Monocytes 5.2 % (0.0-10.0); Hematocrit 43.1 % (42.0-52.0); Mean Platelet Volume 9.1 fL (7.4-10.4); Red Blood Cell (RBC) Count 4.87 mill/uL (4.70-6.10); White Blood Cell (WBC) Count 4.3 thou/uL (4.8-10.8)
[2017-10-13 06:16] LABS: ALT (SGPT) 31 U/L (8-55); AST (SGOT) 31 U/L (5-34); Alkaline Phosphatase 46 U/L (40-150); Anion Gap 8 mmol/L (10-20); BUN (Urea Nitrogen) 8 mg/dL (8.9-20.6); Bilirubin, Total 0.8 mg/dL (0.2-1.2); Calc. Creatinine Clearance 152 mL/min (70-130); Calcium 7.8 mg/dL (7.8-10.44); Carbon Dioxide 24 mmol/L (22-29); Chloride 106 mmol/L (98-107); Estimated GFR-MDRD Greater than 90; Globulin 3.4 g/dL (2.4-3.5); Protein, Total 5.9 g/dL (6.0-8.3)
[2017-10-13] MEDS ORDERED: Potassium Chloride 20 MEQ TAB PO SCH ×2 (07:30→19:45)
[2017-10-13] MEDS ORDERED: Promethazine HCl 25 MG/ML VIAL IM/IV PRN (08:46)
--- NOTE | 2017-10-13 08:51 | PDOC.FM ---
- Subjective Subjective: The patient reports worsened shortness of breath since last night. He also reports continued nausea and vomiting. He vomited once while I was in the room with him. He has been having bowel movements. No appetite. - Objective MAR Reviewed: Yes Vital Signs & Weight: Vital Signs (12 hours) Temp Pulse Resp BP Pulse Ox 10/13/17 07:20 97.5 F L 73 16 126/81 94 L 10/13/17 03:00 92 L 10/12/17 21:28 98.1 F 82 16 92 L Weight Weight 101.8 kg Most Recent Monitor Data Heart Rate from ECG 120 NIBP 146/97 NIBP BP-Mean 108 Respiration from ECG 19 SpO2 97 I&O: 10/12/17 10/13/17 10/14/17 06:59 06:59 06:59 Intake Total 2390 3600 Output Total 1350 3050 Balance 1040 550 Result Diagrams: 10/13/17 05:45 10/13/17 05:45 <Shira Fletcher - Last Filed: 10/13/17 08:48> - Objective Vital Signs & Weight: Vital Signs (12 hours) Temp Pulse Resp BP Pulse Ox 10/13/17 08:00 97.5 F L 73 16 94 L 10/13/17 07:20 97.5 F L 73 16 126/81 94 L 10/13/17 03:00 92 L Weight Weight 101.8 kg Most Recent Monitor Data Heart Rate from ECG 120 NIBP 146/97 NIBP BP-Mean 108 Respiration from ECG 19 SpO2 97 I&O: 10/12/17 10/13/17 10/14/17 06:59 06:59 06:59 Intake Total 2390 3600 Output Total 1350 3050 Balance 1040 550 Result Diagrams: 10/13/17 05:45 10/13/17 05:45 <Tatiana Aviles - Last Filed: 10/13/17 12:02> Phys Exam - Physical Examination Constitutional: NAD HEENT: moist MMs Neck: no nodes, supple Respiratory: no wheezing, no rales, no rhonchi, clear to auscultation bilateral Cardiovascular: RRR, no significant murmur, no rub Gastrointestinal: soft, non-tender, no distention, positive bowel sounds Musculoskeletal: edema present (trace) Neurological: non-focal, moves all 4 limbs Psychiatric: normal affect, A&O x 3 Skin: no rash <Shira Fletcher - Last Filed: 10/13/17 08:48> Dx/Plan (1) Acute respiratory failure with hypoxia Code(s): J96.01 - ACUTE RESPIRATORY FAILURE WITH HYPOXIA Status: Acute Plan: This is likely 2/2 pneumonia Patient currently satting 92-94% on 3L O2 overnight. -Dr. Curry with Pulm consulted, appreciate recs -Wean O2 as tolerated -Will give one dose of IV lasix as patient having worsened SOB overnight -Will repeat CXR (2) Atypical pneumonia Code(s): J18.9 - PNEUMONIA, UNSPECIFIED ORGANISM Status: Acute Plan: Concern for PJP in the setting of AIDS with CD4 of 8. Bronchoscopy done on 10/11 to confirm diagnosis -Dr. Waldrop with ID consulted, appreciate recs -Broad spectrum abx coverage with Zosyn day 6, Levaquin day 6 -Bactrim IV and prednisone to cover for PJP -f/u cytology/biopsy results from bronch (3) AIDS (acquired immunodeficiency syndrome), CD4 <=200/<=14% Code(s): B20 - HUMAN IMMUNODEFICIENCY VIRUS [HIV] DISEASE Status: Chronic Plan: New diagnosis of HIV CD4 count of 8 -Dr. Waldrop with ID consulted, appreciate recs -Levaquin will cover for MAC ppx, but will need azithromycin when this is d/c'd -Bactrim for concern for PJP -HAART therapy with Raltegravir and Truvada (4) Hepatitis C Code(s): B19.20 - UNSPECIFIED VIRAL HEPATITIS C WITHOUT HEPATIC COMA Status: Acute QualifierTitle: Viral hepatitis chronicity: chronic Hepatic coma status: without hepatic coma Qualified Code(s): B18.2 - Chronic viral hepatitis C Plan: Not currently receiving treatment. Asymptomatic at this time. Will need outpatient f/u (5) Hypokalemia Code(s): E87.6 - HYPOKALEMIA Status: Acute Plan: Potassium improving at 3.1 today, will replace with PO potassium. -Check magnesium level <Shira Fletcher - Last Filed: 10/13/17 08:48> Attending Addendum - Attending Addendum I personally evaluated the patient and discussed the management with Dr. Fletcher I agree with the History, Examination, Assessment and Plan documented above with any addition or exceptions noted below- Patient feeling a little better this morning. Had increased SOB overnight. N/V improved after phenergan. Afebrile VSS A/P: 1) Pneumonia- continue current abx and steroids; Bronch washings pending. 2) HIV/AIDS- continue current meds. <Tatiana Aviles - Last Filed: 10/13/17 12:02>
[2017-10-13] MEDS ORDERED: Furosemide 20 MG/2 ML VIAL SLOW IVP SCH (09:00)
[2017-10-13] MEDS: Enoxaparin Sodium 40 MG/0.4 ML SYRINGE SC SCH (09:12)
[2017-10-13] MEDS: Morphine 4 MG/ML VIAL SLOW IVP PRN (09:20)
[2017-10-13] MEDS: Clotrimazole 1 % Cream 30 GM TUBE TOP SCH ×2 (09:45→20:34)
[2017-10-13] MEDS ORDERED: Polyethylene Glycol 3350 17 GM Packet PO PRN (09:54)
[2017-10-13] MEDS ORDERED: Docusate 100 MG CAP PO PRN (09:54)
[2017-10-13] MEDS: Raltegravir Potassium 400 MG TAB PO SCH ×2 (11:11→20:34)
[2017-10-13] MEDS: predniSONE 20 MG TAB PO SCH (11:11)
[2017-10-13] MEDS: Emtricitabine/Tenofovir 200-300 MG TAB PO SCH (11:11)
--- NOTE | 2017-10-13 13:45 | PRG ---
DATE OF SERVICE: 10/13/2017 SUBJECTIVE: Mr. Caleb Gonsales said he is having difficulty breathing last night, cough. PHYSICAL EXAMINATION: VITAL SIGNS: Sats are 94% on 2 liters, temperature 97, respirations 16, blood pressure 128/80. CHEST: No wheezing, no crackles. CARDIAC: Normal S1 and S2. No gallops. ABDOMEN: Soft. No masses. LABORATORY DATA: White count 4,000, hemoglobin and hematocrit 14 and 43, platelet count normal. Evita ctrolytes are normal. Potassium 3.1 and albumin 2.4. AFB negative. Cultures are negative. Awaitin g PCP stain. IMPRESSION: Respiratory failure, Human immunodeficiency virus, bilateral bronchopneumonia. PLAN: Awaiting biopsy reports. I will discontinue daily labs on this gentleman. Hopefully, the reports will be back tomorrow. Further disposition as per Infectious Disease. We will follow.
--- NOTE | 2017-10-13 15:06 | RAD ---
TWO VIEW CHEST: History: Pneumonia. Comparison: 10-10-17 FINDINGS: There are bilateral lung infiltrates which do not appear significantly changed from 10-10-17. Central line is unchanged. IMPRESSION: Persistent bilateral lung infiltrates. POS: [facility]
--- NOTE | 2017-10-13 18:38 | PRG ---
DATE OF SERVICE: 10/13/2017 HISTORY: Stable, a little bit of cough, a little bit of dyspnea, no chest pain. No abdominal pain, diarrhea, voiding without difficulty. OBJECTIVE: VITAL SIGNS: Normal. O2 sat 94% on 2 liters. GENERAL: Awake, alert, oriented. LUNGS: With symmetric air entry. HEART: S1, S2, regular rate. ABDOMEN: Soft, not distended. LABORATORY DATA: White cell count 4.3, hemoglobin 14, platelets 140, creatinine 0.91, sodium 135, po tassium 3.1. Fungitell assay positive, greater than 500. Pneumocystis stain from BAL was positive. 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 Discontinue Levaquin and Zosyn. Continue Bactrim and eventually transition to oral Bactrim. Total duration of therapy with Bactrim 21 days a nd then suppressive or secondary prophylaxis with double-strength tablet 3 times weekly. Continue an tiretroviral therapy as currently. He will also need azithromycin weekly prophylaxis, corticosteroid taper.
[2017-10-14] MEDS: Emtricitabine/Tenofovir 200-300 MG TAB PO SCH (08:18)
[2017-10-14] MEDS: predniSONE 20 MG TAB PO SCH (08:18)
[2017-10-14] MEDS: Enoxaparin Sodium 40 MG/0.4 ML SYRINGE SC SCH (08:18)
[2017-10-14] MEDS: Clotrimazole 1 % Cream 30 GM TUBE TOP SCH ×2 (08:19→20:24)
--- NOTE | 2017-10-14 08:25 | PDOC.FM ---
- Subjective Subjective: The patient was resting comfortably on 3L O2. Patient reports that he was able to sleep last night for the first time this hospitalization. His breathing has improved. He denies any further nausea or vomiting and was able to tolerate breakfast without difficulty. He denies chest pain or abdominal pain. - Objective MAR Reviewed: Yes Vital Signs & Weight: Vital Signs (12 hours) Temp Pulse Resp BP Pulse Ox 10/14/17 07:51 97.9 F 71 20 131/85 90 L 10/14/17 02:23 92 L Weight Weight 101.8 kg Most Recent Monitor Data Heart Rate from ECG 120 NIBP 146/97 NIBP BP-Mean 108 Respiration from ECG 19 SpO2 97 I&O: 10/13/17 10/14/17 10/15/17 06:59 06:59 06:59 Intake Total 3600 3050 Output Total 3050 2350 Balance 550 700 Result Diagrams: 10/13/17 05:45 10/13/17 05:45 <Shira Fletcher - Last Filed: 10/14/17 08:24> - Objective Vital Signs & Weight: Vital Signs (12 hours) Temp Pulse Resp BP Pulse Ox 10/14/17 07:51 97.9 F 71 20 131/85 90 L 10/14/17 02:23 92 L Weight Weight 101.8 kg Most Recent Monitor Data Heart Rate from ECG 120 NIBP 146/97 NIBP BP-Mean 108 Respiration from ECG 19 SpO2 97 I&O: 10/13/17 10/14/17 10/15/17 06:59 06:59 06:59 Intake Total 3600 3050 120 Output Total 3050 2350 Balance 550 700 120 Result Diagrams: 10/13/17 05:45 10/14/17 09:25 <Lio Sandhu - Last Filed: 10/14/17 11:48> Phys Exam - Physical Examination Constitutional: NAD (on 3L O2) HEENT: moist MMs Respiratory: no wheezing, no rales, no rhonchi, clear to auscultation bilateral Cardiovascular: RRR, no significant murmur, no rub Gastrointestinal: soft, non-tender, no distention, positive bowel sounds Musculoskeletal: pulses present, edema present (trace) Neurological: non-focal, normal sensation, moves all 4 limbs Psychiatric: normal affect, A&O x 3 <Shira Fletcher - Last Filed: 10/14/17 08:24> Dx/Plan (1) Acute respiratory failure with hypoxia Code(s): J96.01 - ACUTE RESPIRATORY FAILURE WITH HYPOXIA Status: Acute Plan: This is likely 2/2 atypical pneumonia Patient currently satting 91-94% on 3L O2 overnight. -Dr. Curry with Pulm consulted, appreciate recs -Wean O2 as tolerated (2) Atypical pneumonia Code(s): J18.9 - PNEUMONIA, UNSPECIFIED ORGANISM Status: Acute Plan: Concern for PJP in the setting of AIDS with CD4 of 8. Bronchoscopy done on 10/11 to confirm diagnosis -Dr. Waldrop with ID consulted, appreciate recs -D/C'd Zosyn and Levaquin after 6 days of treatment -Bactrim IV and prednisone to cover for PJP -f/u cytology/biopsy results from bronch (3) AIDS (acquired immunodeficiency syndrome), CD4 <=200/<=14% Code(s): B20 - HUMAN IMMUNODEFICIENCY VIRUS [HIV] DISEASE Status: Chronic Plan: New diagnosis of HIV CD4 count of 8 -Dr. Waldrop with ID consulted, appreciate recs -Patient will need weekly azithromycin for MAC ppx -Bactrim for concern for PJP -HAART therapy with Raltegravir and Truvada (4) Hepatitis C Code(s): B19.20 - UNSPECIFIED VIRAL HEPATITIS C WITHOUT HEPATIC COMA Status: Acute QualifierTitle: Viral hepatitis chronicity: chronic Hepatic coma status: without hepatic coma Qualified Code(s): B18.2 - Chronic viral hepatitis C Plan: Not currently receiving treatment. Asymptomatic at this time. Will need outpatient f/u (5) Hypokalemia Code(s): E87.6 - HYPOKALEMIA Status: Acute Plan: Potassium was 3.1 yesterday, replaced with PO potassium. Magnesium level WNL Potassium level not back yet this morning, but will replace if needed <Shira Fletcher - Last Filed: 10/14/17 08:24> Attending Addendum - Attending Addendum I personally evaluated the patient and discussed the management with Dr. Fletcher. I agree with the History, Examination, Assessment and Plan documented above with any addition or exceptions noted below. Patient feeling somewhat better today. Reports his respiratory status is improved. Continues on Bactrim and Prednisone for presumed PCP atypical pneumonia related to AIDS disease. Awaiting final pathology to confirm PCP. Appreciate specialist input. <Lio Sandhu - Last Filed: 10/14/17 11:48>
--- NOTE | 2017-10-14 08:42 | PRG ---
DATE OF SERVICE: 10/14/2017 He appears to be somewhat less short of breath. PHYSICAL EXAMINATION: VITAL SIGNS: His sats are 93. His temperature is 97, blood pressure 131/85. CHEST: Chest reveals bilateral crackles. CARDIAC: Normal S1, S2. ABDOMEN: Soft, no masses. Bronch washings has shown PCP. Otherwise, cultures so far are negative. X-ray taken yesterday shows his bilateral infiltrates, slightly more pronounced in the left lung. IMPRESSION: 1. Pneumocystis. 2. Bronchopneumonia. 3. Respiratory failure. 4. Human immunodeficiency virus. PLAN: Antibiotics per Infectious Disease. Bactrim as prescribed, prednisone for 3 weeks. He is stable to be discharged back to intermediate system.
[2017-10-14] MEDS: Raltegravir Potassium 400 MG TAB PO SCH ×2 (09:18→20:23)
[2017-10-14 10:12] LABS: Anion Gap 12 mmol/L (10-20); BUN (Urea Nitrogen) 9 mg/dL (8.9-20.6); Calc. Creatinine Clearance 147 mL/min (70-130); Calcium 8.3 mg/dL (7.8-10.44); Carbon Dioxide 24 mmol/L (22-29); Chloride 103 mmol/L (98-107); Estimated GFR-MDRD 88
--- NOTE | 2017-10-14 20:34 | HP ---
DATE OF SERVICE: 10/14/2017 SUBJECTIVE: Still little bit dyspneic at rest, coughing less frequently. No abdominal pain. Voidin g without difficulty. OBJECTIVE: VITAL SIGNS: Normal. O2 sat 94% on 3 liters, little bit tachypneic 22/minute. LUNGS: Symmetric air entry without obvious crackles or wheezing. HEART: S1, S2, regular rate. ABDOMEN: Soft, but distended. LABORATORY DATA: White cell count 4.3, hemoglobin 14, platelets 140. Creatinine 0.94, potassium 3.7 . The BAL and lung biopsy consistent with pneumocystis jiroveci infection. The patient has been on Jaylene trim for a few days. Other antimicrobials discontinued. Continue antiretroviral therapy, corticoste roids. We will need at least 21 days of therapy. Eventually transitioned to oral once his O2 sats s cattered, get better and is able to be saturating properly on room air.
[2017-10-15] MEDS: Morphine 4 MG/ML VIAL SLOW IVP PRN (00:32)
--- NOTE | 2017-10-15 08:30 | PDOC.FM ---
- Subjective Subjective: Patient doing well this AM. His breathing status has improved. He did three laps of the tineo yesterday and only developed SOB on the third lap. He is tolerating PO well. He is still having some bowel gas and feeling bloated. His bowel movements have been very small. - Objective MAR Reviewed: Yes Vital Signs & Weight: Vital Signs (12 hours) Temp Pulse Resp BP Pulse Ox 10/15/17 07:48 97.8 F 66 18 121/75 95 Weight Weight 101.248 kg Most Recent Monitor Data Heart Rate from ECG 120 NIBP 146/97 NIBP BP-Mean 108 Respiration from ECG 19 SpO2 97 I&O: 10/14/17 10/15/17 10/16/17 06:59 06:59 06:59 Intake Total 3050 1520 Output Total 2350 1100 Balance 700 420 Result Diagrams: 10/13/17 05:45 10/14/17 09:25 <Shira Fletcher - Last Filed: 10/15/17 08:27> - Objective Vital Signs & Weight: Vital Signs (12 hours) Temp Pulse Resp BP Pulse Ox 10/15/17 11:37 93 L 10/15/17 08:00 97.8 F 66 18 95 10/15/17 07:48 97.8 F 66 18 121/75 95 Weight Weight 101.248 kg Most Recent Monitor Data Heart Rate from ECG 120 NIBP 146/97 NIBP BP-Mean 108 Respiration from ECG 19 SpO2 97 I&O: 10/14/17 10/15/17 10/16/17 06:59 06:59 06:59 Intake Total 3050 1520 120 Output Total 2350 1100 600 Balance 700 420 -480 Result Diagrams: 10/13/17 05:45 10/14/17 09:25 <Lio Sandhu - Last Filed: 10/15/17 12:26> Phys Exam - Physical Examination Constitutional: NAD HEENT: moist MMs Neck: no nodes R IJ in place with no erythema or warmth Respiratory: no wheezing, no rales, no rhonchi, clear to auscultation bilateral Cardiovascular: RRR, no significant murmur, no rub, gallop Gastrointestinal: soft, non-tender, no distention, positive bowel sounds Musculoskeletal: edema present (trace) Neurological: non-focal, moves all 4 limbs Psychiatric: normal affect, A&O x 3 <Shira Fletcher - Last Filed: 10/15/17 08:27> Dx/Plan (1) Acute respiratory failure with hypoxia Code(s): J96.01 - ACUTE RESPIRATORY FAILURE WITH HYPOXIA Status: Acute Plan: This is likely 2/2 atypical pneumonia Patient currently satting 93-94% on 3L O2 overnight. -Dr. Curry with Pulm consulted, appreciate recs -Will d/c O2 this AM and see how pt tolerates it (2) Atypical pneumonia Code(s): J18.9 - PNEUMONIA, UNSPECIFIED ORGANISM Status: Acute Plan: Concern for PJP in the setting of AIDS with CD4 of 8. Bronchoscopy done on 10/11 to confirm diagnosis -Dr. Waldrop with ID consulted, appreciate recs -D/C'd Zosyn and Levaquin after 6 days of treatment -Bactrim IV and prednisone to cover for PJP, will switch to PO bactrim today -bronch biopsy confirmed pneumocystis (3) AIDS (acquired immunodeficiency syndrome), CD4 <=200/<=14% Code(s): B20 - HUMAN IMMUNODEFICIENCY VIRUS [HIV] DISEASE Status: Chronic Plan: New diagnosis of HIV CD4 count of 8 -Dr. Waldrop with ID consulted, appreciate recs -Patient will need weekly azithromycin for MAC ppx -Bactrim for PJP -HAART therapy with Raltegravir and Truvada (4) Hepatitis C Code(s): B19.20 - UNSPECIFIED VIRAL HEPATITIS C WITHOUT HEPATIC COMA Status: Acute QualifierTitle: Viral hepatitis chronicity: chronic Hepatic coma status: without hepatic coma Qualified Code(s): B18.2 - Chronic viral hepatitis C Plan: Not currently receiving treatment. Asymptomatic at this time. Will need outpatient f/u (5) Hypokalemia Code(s): E87.6 - HYPOKALEMIA Status: Resolved Plan: Hypokalemia resolved with PO replacement - Plan Plan: Likely d/c back to [facility] today or tomorrow with HAART therapy, weekly azithromycin, bactrim, prednisone <Shira Fletcher - Last Filed: 10/15/17 08:27> Attending Addendum - Attending Addendum I personally evaluated the patient and discussed the management with Dr. Fletcher. I agree with the History, Examination, Assessment and Plan documented above with any addition or exceptions noted below. Patient reports improvement in symptoms and his supplemental O2 requirement is decreased, signifying improvement. Pathology consistent with PJP pneumonia 2/2 AIDS and immunosuppresison. Continue Bactrim, Prednisone, and wean O2 as tolerated. Hopefully will be off O2 and stable for discharge in the coming days. <Lio Sandhu - Last Filed: 10/15/17 12:26>
--- NOTE | 2017-10-15 08:53 | PRG ---
DATE OF SERVICE: 10/15/2017 He is better, he is less short of breath. PHYSICAL EXAMINATION: VITAL SIGNS: His blood pressure is 120/75, sats are 97% on 2 liters, temperature 97. Respiratory ra te 18. CHEST: No wheezing. CARDIAC: Normal S1-S2. No gallops. Electrolytes are normal. IMPRESSION: 1. Pneumocystis. 2. Bilateral bronchopneumonia. 3. Respiratory failure, much improved. PLAN: Disposition per Infectious Disease. Switch over to oral Bactrim, prednisone tapered over 3 we eks.
[2017-10-15] MEDS: Raltegravir Potassium 400 MG TAB PO SCH ×2 (09:11→19:43)
[2017-10-15] MEDS: Emtricitabine/Tenofovir 200-300 MG TAB PO SCH (09:11)
[2017-10-15] MEDS: Clotrimazole 1 % Cream 30 GM TUBE TOP SCH ×2 (09:11→19:43)
[2017-10-15] MEDS: Enoxaparin Sodium 40 MG/0.4 ML SYRINGE SC SCH (09:13)
[2017-10-15] MEDS ORDERED: predniSONE 20 MG TAB PO SCH (09:15)
[2017-10-15] MEDS: predniSONE 20 MG TAB PO SCH (09:32)
[2017-10-15] MEDS ORDERED: Simethicone Chewable 80 MG TAB PO PRN (11:42)
[2017-10-16] MEDS: predniSONE 20 MG TAB PO SCH (08:24)
[2017-10-16] MEDS: Enoxaparin Sodium 40 MG/0.4 ML SYRINGE SC SCH (08:24)
[2017-10-16] MEDS: Emtricitabine/Tenofovir 200-300 MG TAB PO SCH (08:24)
[2017-10-16] MEDS: Clotrimazole 1 % Cream 30 GM TUBE TOP SCH ×2 (08:25→20:10)
[2017-10-16] MEDS: Raltegravir Potassium 400 MG TAB PO SCH ×2 (08:25→20:09)
--- NOTE | 2017-10-16 08:34 | PDOC.FM ---
- Subjective Subjective: Patient doing better this AM. He reports that his breathing has continued to improve. His abdominal pain and gas pain has improved. He is no longer feeling constipated and is having good BM's. - Objective MAR Reviewed: Yes Vital Signs & Weight: Weight Weight 101.248 kg Most Recent Monitor Data Heart Rate from ECG 120 NIBP 146/97 NIBP BP-Mean 108 Respiration from ECG 19 SpO2 97 I&O: 10/15/17 10/16/17 10/17/17 06:59 06:59 06:59 Intake Total 1520 1600 Output Total 1100 1875 Balance 420 -275 Result Diagrams: 10/13/17 05:45 10/14/17 09:25 <Shira Fletcher - Last Filed: 10/16/17 08:32> - Objective Vital Signs & Weight: Vital Signs (12 hours) Temp Pulse Resp BP Pulse Ox 10/16/17 08:00 97.7 F 86 20 110/68 94 L Weight Weight 101.248 kg Most Recent Monitor Data Heart Rate from ECG 120 NIBP 146/97 NIBP BP-Mean 108 Respiration from ECG 19 SpO2 97 I&O: 10/15/17 10/16/17 10/17/17 06:59 06:59 06:59 Intake Total 1520 1600 480 Output Total 1100 1875 Balance 420 -275 480 Result Diagrams: 10/13/17 05:45 10/14/17 09:25 <Lio Sandhu - Last Filed: 10/16/17 11:58> Phys Exam - Physical Examination Constitutional: NAD HEENT: moist MMs Respiratory: no wheezing, no rales, no rhonchi, clear to auscultation bilateral Cardiovascular: RRR, no significant murmur, no rub Gastrointestinal: soft, non-tender, no distention, positive bowel sounds Musculoskeletal: no edema, pulses present Neurological: non-focal, moves all 4 limbs Psychiatric: normal affect, A&O x 3 Skin: no rash, cap refill <2 seconds <Shira Fletcher - Last Filed: 10/16/17 08:32> Dx/Plan (1) Acute respiratory failure with hypoxia Code(s): J96.01 - ACUTE RESPIRATORY FAILURE WITH HYPOXIA Status: Acute Plan: This is likely 2/2 atypical pneumonia Patient currently satting 93-94% on 1L O2 overnight. -Dr. Curry with Pulm consulted, appreciate recs -Will d/c O2 this AM and see how pt tolerates it -Encourage incentive spirometry (2) Atypical pneumonia Code(s): J18.9 - PNEUMONIA, UNSPECIFIED ORGANISM Status: Acute Plan: Concern for PJP in the setting of AIDS with CD4 of 8. Bronchoscopy done on 10/11 to confirm diagnosis, biospy confirmed pneumocystis -Dr. Waldrop with ID consulted, appreciate recs -D/C'd Zosyn and Levaquin after 6 days of treatment -Bactrim IV and prednisone to cover for PJP, will switch to PO bactrim prior to d/c (3) AIDS (acquired immunodeficiency syndrome), CD4 <=200/<=14% Code(s): B20 - HUMAN IMMUNODEFICIENCY VIRUS [HIV] DISEASE Status: Chronic Plan: New diagnosis of HIV CD4 count of 8 -Dr. Waldrop with ID consulted, appreciate recs -Patient will need weekly azithromycin for MAC ppx -Bactrim for PJP -HAART therapy with Raltegravir and Truvada (4) Hepatitis C Code(s): B19.20 - UNSPECIFIED VIRAL HEPATITIS C WITHOUT HEPATIC COMA Status: Acute QualifierTitle: Viral hepatitis chronicity: chronic Hepatic coma status: without hepatic coma Qualified Code(s): B18.2 - Chronic viral hepatitis C Plan: Not currently receiving treatment. Asymptomatic at this time. Will need outpatient f/u (5) Hypokalemia Code(s): E87.6 - HYPOKALEMIA Status: Resolved Plan: Hypokalemia resolved with PO replacement <Shira Fletcher - Last Filed: 10/16/17 08:32> Attending Addendum - Attending Addendum I personally evaluated the patient and discussed the management with Dr. Fletcher. I agree with the History, Examination, Assessment and Plan documented above with any addition or exceptions noted below. Patient doing better today. Has decreased oxygen requirement and has been able to ambulate with less dyspnea. Will continue to wean O2 as tolerated. SHould be stable for discharge once off O2. Hopeful for next 1-2 days. <Lio Sandhu - Last Filed: 10/16/17 11:58>
--- NOTE | 2017-10-16 09:06 | PRG ---
DATE OF SERVICE: 10/16/2017 Caleb Gonsales is better. PHYSICAL EXAMINATION: VITAL SIGNS: Sats are 94% on room air, pulse is 78, temperature 97, respirations 18. CHEST: No wheezing, no crackles. CARDIAC: Normal S1-S2. ABDOMEN: Soft, no masses. IMPRESSION: 1. Human immunodeficiency virus with pneumocystis. 2. Bronchopneumonia. 3. Respiratory failure. 4. Hypoxia, improved. DISPOSITION: As per Infectious Disease. Please call if needed.
[2017-10-17] MEDS: Raltegravir Potassium 400 MG TAB PO SCH ×2 (07:57→20:31)
[2017-10-17] MEDS: Enoxaparin Sodium 40 MG/0.4 ML SYRINGE SC SCH (07:57)
[2017-10-17] MEDS: Emtricitabine/Tenofovir 200-300 MG TAB PO SCH (07:57)
[2017-10-17] MEDS: predniSONE 20 MG TAB PO SCH (07:57)
[2017-10-17] MEDS: Clotrimazole 1 % Cream 30 GM TUBE TOP SCH ×2 (08:07→20:30)
--- NOTE | 2017-10-17 08:15 | PDOC.FM ---
- Subjective Subjective: Patient continuing to slowly improve. He feels less SOB at rest and was able to tolerate PT better yesterday. He is tolerating PO well and having good BM's. - Objective MAR Reviewed: Yes Vital Signs & Weight: Vital Signs (12 hours) Temp Pulse Resp BP Pulse Ox 10/17/17 07:32 97.6 F 76 18 110/75 95 Weight Weight 101.248 kg Most Recent Monitor Data Heart Rate from ECG 120 NIBP 146/97 NIBP BP-Mean 108 Respiration from ECG 19 SpO2 97 I&O: 10/16/17 10/17/17 10/18/17 06:59 06:59 06:59 Intake Total 1600 1680 Output Total 1875 Balance -275 1680 Result Diagrams: 10/13/17 05:45 10/14/17 09:25 <Shira Fletcher - Last Filed: 10/17/17 08:13> - Objective Vital Signs & Weight: Vital Signs (12 hours) Temp Pulse Resp BP Pulse Ox 10/17/17 08:00 97.6 F 76 18 93 L 10/17/17 07:32 97.6 F 76 18 110/75 95 Weight Admit Weight 102.285 kg Weight 101.248 kg Most Recent Monitor Data Heart Rate from ECG 120 NIBP 146/97 NIBP BP-Mean 108 Respiration from ECG 19 SpO2 97 I&O: 10/16/17 10/17/17 10/18/17 06:59 06:59 06:59 Intake Total 1600 1680 Output Total 1875 Balance -275 1680 Result Diagrams: 10/13/17 05:45 10/14/17 09:25 <Lio Sandhu - Last Filed: 10/17/17 12:25> Phys Exam - Physical Examination Constitutional: NAD HEENT: moist MMs Respiratory: no wheezing, no rales, no rhonchi, clear to auscultation bilateral Cardiovascular: RRR, no significant murmur, no rub Gastrointestinal: soft, non-tender, no distention, positive bowel sounds Musculoskeletal: no edema, pulses present Neurological: non-focal, moves all 4 limbs Psychiatric: normal affect, A&O x 3 <Shira Fletcher - Last Filed: 10/17/17 08:13> Dx/Plan (1) Acute respiratory failure with hypoxia Code(s): J96.01 - ACUTE RESPIRATORY FAILURE WITH HYPOXIA Status: Acute Plan: This is likely 2/2 atypical pneumonia Patient currently satting 94-95% on 1/2L O2 overnight. -Dr. Curry with Pulm consulted, appreciate recs -Will d/c O2 this AM and see how pt tolerates it -Encourage incentive spirometry (2) Atypical pneumonia Code(s): J18.9 - PNEUMONIA, UNSPECIFIED ORGANISM Status: Acute Plan: Concern for PJP in the setting of AIDS with CD4 of 8. Bronchoscopy done on 10/11 to confirm diagnosis, biopsy confirmed pneumocystis -Dr. Waldrop with ID consulted, appreciate recs -D/C'd Zosyn and Levaquin after 6 days of treatment -Bactrim IV and prednisone to cover for PJP, will switch to PO bactrim prior to d/c (3) AIDS (acquired immunodeficiency syndrome), CD4 <=200/<=14% Code(s): B20 - HUMAN IMMUNODEFICIENCY VIRUS [HIV] DISEASE Status: Chronic Plan: New diagnosis of HIV CD4 count of 8 -Dr. Waldrop with ID consulted, appreciate recs -Patient will need weekly azithromycin for MAC ppx -Bactrim for PJP -HAART therapy with Raltegravir and Truvada (4) Hepatitis C Code(s): B19.20 - UNSPECIFIED VIRAL HEPATITIS C WITHOUT HEPATIC COMA Status: Acute QualifierTitle: Viral hepatitis chronicity: chronic Hepatic coma status: without hepatic coma Qualified Code(s): B18.2 - Chronic viral hepatitis C Plan: Not currently receiving treatment. Asymptomatic at this time. Will need outpatient f/u (5) Hypokalemia Code(s): E87.6 - HYPOKALEMIA Status: Resolved Plan: Hypokalemia resolved with PO replacement <Shira Fletcher - Last Filed: 10/17/17 08:13> Attending Addendum - Attending Addendum I personally evaluated the patient and discussed the management with Dr. Fletcher. I agree with the History, Examination, Assessment and Plan documented above with any addition or exceptions noted below. Patient has been successfully weaned off supplemental O2. We will allow him to participate in PT today and see how he tolerates being off oxygen. Labs stable, Pulm has signed off. Await final recs from ID, but anticipate discharge in next 1-2 days. <Lio Sandhu - Last Filed: 10/17/17 12:25>
[2017-10-17 09:34] VITALS: BMI 33.9
[2017-10-17] MEDS: Sulfameth/Trimethoprim DS 800-160mg TAB PO SCH (20:30)
--- NOTE | 2017-10-17 21:37 | PRG ---
DATE OF SERVICE: 10/17/2017 SUBJECTIVE: Mr. Gonsales is feeling better, coughing less, more stamina, no abdominal pain, no diarr hea, no genitourinary symptoms. PHYSICAL EXAMINATION: VITAL SIGNS: Temperature has been normal. His O2 sat 93%-95%. HEENT: Ocular movements are conjugate. LUNGS: With symmetric clear breath sounds. HEART: S1, S2 with regular rate. ABDOMEN: Soft, not distended. LABORATORY DATA: Moves all extremities equally. White cell count 4.3, hemoglobin 14.6, platelets 14 0, creatinine 0.94, sodium 135. HIV RNA 1,460,000. CURRENT MEDICATIONS: Prednisone, Bactrim IV, tenofovir, emtricitabine, and Isentress. ASSESSMENT AND DISCUSSION: Human immunodeficiency virus infection PCP or Pneumocystis jirovecii pneu monia. The improvement is clear at this point. We will switch him to oral Bactrim. Continue Isentr ess and Truvada and tapering dose of prednisone. After completion of 21 days of Bactrim, then switch him to suppressive Bactrim 3 times a week. Continue antiretroviral therapy and prednisone taper in the outpatient setting. The patient will need azithromycin weekly prophylaxis until his CD4 is above 50.
--- NOTE | 2017-10-18 08:10 | PDOC.FM ---
- Subjective Subjective: The patient is doing well today off oxygen. He has shown a lot of improvement. He reports that he got tired when he was working with PT yesterday, but did not get too short of breath. He denies any chest pain, abdominal pain or new complaints. - Objective MAR Reviewed: Yes Vital Signs & Weight: Vital Signs (12 hours) Temp Pulse Resp BP Pulse Ox 10/18/17 07:24 97.7 F 80 18 110/72 95 10/17/17 22:00 97.9 F 77 18 106/58 L 92 L Weight Admit Weight 102.285 kg Weight 101.248 kg Most Recent Monitor Data Heart Rate from ECG 120 NIBP 146/97 NIBP BP-Mean 108 Respiration from ECG 19 SpO2 97 I&O: 10/17/17 10/18/17 10/19/17 06:59 06:59 06:59 Intake Total 1680 Output Total 1625 Balance 1680 -1625 Result Diagrams: 10/13/17 05:45 10/14/17 09:25 <Shira Fletcher - Last Filed: 10/18/17 08:08> - Objective Vital Signs & Weight: Vital Signs (12 hours) Temp Pulse Resp BP Pulse Ox 10/18/17 07:24 97.7 F 80 18 110/72 95 Weight Admit Weight 102.285 kg Weight 101.248 kg Most Recent Monitor Data Heart Rate from ECG 120 NIBP 146/97 NIBP BP-Mean 108 Respiration from ECG 19 SpO2 97 I&O: 10/17/17 10/18/17 10/19/17 06:59 06:59 06:59 Intake Total 1680 180 Output Total 1625 Balance 1680 -1625 180 Result Diagrams: 10/13/17 05:45 10/14/17 09:25 <Lio Sandhu - Last Filed: 10/18/17 11:48> Phys Exam - Physical Examination Constitutional: NAD HEENT: moist MMs Respiratory: no wheezing, no rales, no rhonchi, clear to auscultation bilateral Cardiovascular: RRR, no significant murmur, no rub Gastrointestinal: soft, non-tender, no distention, positive bowel sounds Musculoskeletal: no edema, pulses present Neurological: non-focal, moves all 4 limbs Psychiatric: normal affect, A&O x 3 <Shira Fletcher - Last Filed: 10/18/17 08:08> Dx/Plan (1) Acute respiratory failure with hypoxia Code(s): J96.01 - ACUTE RESPIRATORY FAILURE WITH HYPOXIA Status: Acute Plan: This is likely 2/2 atypical pneumonia Patient currently satting 92-95% on RA overnight. -Encourage incentive spirometry (2) Atypical pneumonia Code(s): J18.9 - PNEUMONIA, UNSPECIFIED ORGANISM Status: Acute Plan: Concern for PJP in the setting of AIDS with CD4 of 8. Bronchoscopy done on 10/11 to confirm diagnosis, biopsy confirmed pneumocystis -Dr. Waldrop with ID consulted, appreciate recs -D/C'd Zosyn and Levaquin after 6 days of treatment -Bactrim transitioned from IV to PO yesterday and prednisone to cover for PJP (3) AIDS (acquired immunodeficiency syndrome), CD4 <=200/<=14% Code(s): B20 - HUMAN IMMUNODEFICIENCY VIRUS [HIV] DISEASE Status: Chronic Plan: New diagnosis of HIV CD4 count of 8 -Dr. Waldrop with ID consulted, appreciate recs -Patient will need weekly azithromycin for MAC ppx until CD4 count > 50 -Bactrim for PJP until completed 6 week course and then will transition to suppressive therapy -HAART therapy with Raltegravir and Truvada (4) Hepatitis C Code(s): B19.20 - UNSPECIFIED VIRAL HEPATITIS C WITHOUT HEPATIC COMA Status: Acute QualifierTitle: Viral hepatitis chronicity: chronic Hepatic coma status: without hepatic coma Qualified Code(s): B18.2 - Chronic viral hepatitis C Plan: Not currently receiving treatment. Asymptomatic at this time. Will need outpatient f/u (5) Hypokalemia Code(s): E87.6 - HYPOKALEMIA Status: Resolved Plan: Hypokalemia resolved with PO replacement - Plan Plan: Will likely d/c today <Shira Fletcher - Last Filed: 10/18/17 08:08> Attending Addendum - Attending Addendum I personally evaluated the patient and discussed the management with Dr. Fletcher. I agree with the History, Examination, Assessment and Plan documented above with any addition or exceptions noted below. Patient has been successfully weaned off O2 and is satting well on room air at rest and with some exertion. He is stable for discharge at this time with Bactrim for PJP. Will also need ppx for his severe immunocompromised state per ID recs. <Lio Sandhu - Last Filed: 10/18/17 11:48>
[2017-10-18] MEDS: Enoxaparin Sodium 40 MG/0.4 ML SYRINGE SC SCH (08:55)
[2017-10-18] MEDS: Sulfameth/Trimethoprim DS 800-160mg TAB PO SCH ×2 (08:55→16:01)
[2017-10-18] MEDS: predniSONE 20 MG TAB PO SCH (08:55)
[2017-10-18] MEDS: Raltegravir Potassium 400 MG TAB PO SCH (08:55)
[2017-10-18] MEDS: Emtricitabine/Tenofovir 200-300 MG TAB PO SCH (08:56)
[2017-10-18] MEDS: Clotrimazole 1 % Cream 30 GM TUBE TOP SCH (08:56)
[2017-10-18 16:16] VITALS: BP 120/77; TEMP 97.6
--- NOTE | 2017-10-21 08:47 | DIS-2 ---
DATE OF ADMISSION: 10/07/2017 DATE OF DISCHARGE: 10/18/2017 ADMITTING RESIDENT: Lisa Fernandez MD DISCHARGE RESIDENT: Shira Fletcher MD ADMITTING ATTENDING: Tomás Ellis MD DISCHARGE ATTENDING: Lio Sandhu MD CONSULTATIONS: Dr. Curry with Pulmonology, Dr. Waldrop with Infectious Disease. PROCEDURES: 1. Right IJ central line placement on 10/07/2017. 2. Repositioned right IJ central line on 10/08/2017. 3. Bronchoscopy with transbronchial biopsy on 10/11/2017. IMAGIN. Chest x-ray showed nonspecific bilateral airspace disease, left greater than right, worsened findings may signify an infectious process or pulmonary edema. 2. Chest CT showed diffuse abnormal alveolar opacities at each lung compatible with provided clinical history of atypical pneumonia. No associated effusion of significance or pneumothorax. 3. Repeat chest x-ray showed persistent bilateral lung infiltrates. PRIMARY DIAGNOSES: 1. Acute hypoxic respiratory failure. 2. Atypical pneumonia secondary to pneumocystis. 3. Acquired immune deficiency syndrome with new onset human immunodeficiency virus infection. 4. Hypokalemia. 5. Hepatitis C. DISCHARGE MEDICATIONS: 1. Azithromycin 1200 mg p.o. every 7 days until CD4 count greater than 50. 2. Truvada 200-300 mg 1 tab p.o. daily. 3. Prednisone taper 20 mg p.o. for 3 days, followed by 10 mg p.o. for 5 days, followed by 5 mg p.o. for 5 days. 4. Raltegravir 400 mg p.o. b.i.d. 5. Bactrim-DS 2 tabs p.o. t.i.d. for 13 days, followed by Bactrim SS 1 tab p.o. 3 times a week for prophylaxis. DISCONTINUED MEDICATIONS: None. HISTORY OF PRESENT ILLNESS/HOSPITAL COURSE: This is a 41-year-old man who presented from alf in acute hypoxic respiratory failure and was found to be HIV positive with a CD4 count of 8 and infiltrates on chest x-ray concerning for pneumocystis. The patient was treated initially with broad spectrum antibiotics including IV Levaquin and Zosyn, status post 1 dose of Rocephin, and then the patient was also started presumptively on Bactrim IV and steroid taper for presumed pneumocystis. Dr. Waldrop with ID was consulted due to AIDS and concern for opportunistic infection. Dr. Curry with pulmonology was consulted due to the patient's acute hypoxic respiratory failure. It was attempted to obtain a sputum sample from the patient, which did not grew out pneumocystis. A bronchoscopy was done by Dr. Curry to get definitive diagnosis. This did confirm pneumocystis on the bronchial washings. The patient slowly improved with decreased oxygen requirement over the course of his stay in the hospital and after definitive diagnosis was made, he was taken off broad spectrum antibiotics and stayed on Bactrim and prednisone. Dr. Waldrop started Mr. Gonsales on HAART therapy and this will need to be continued and followed in this patient when he goes back to alf. Since the patient was on Levaquin , he was being covered for MAC prophylactically. When that was discontinued, he needed to be covered with azithromycin. So that was started at a once weekly dose and will be continued outpatient until the patient's CD4 count is greater than 50. By the patient's last day of hospitalization, he was able to be off of oxygen and walk to the bathroom and back without getting significantly short of breath and even made a lap around the [place] with the walking program and said that he felt tired, but not significantly short of breath and his oxygen saturations stayed within normal limits. The patient will continue to improve over time and will need close followup outpatient. His Bactrim and prednisone taper will need to be continued for 13 days outpatient and then the Bactrim will need to go to the prophylactic dose of 3 times weekly. During his stay, the patient became mildly hypokalemic and this improved with oral potassium replacement. This was likely secondary to the patient's nausea and vomiting he was having from the new medications he had been started on. The patient's nausea and vomiting improved after a few days and he was able to tolerate p.o. and started having good bowel movements again. Greater than 30 minutes were spent coordinating discharge. DISPOSITION: Stable. DISCHARGE INSTRUCTIONS: 1. Location: Nursing Home. 2. Diet: Regular. 3. Activity: As tolerated. 4. Follow up with PCP within 1 week. FAVIO
[2017-10-21 15:09] LABS: LOG10 HIV-1 RNA 2.699 (.)
== END 2017-10-18 16:09 | DRG 974 ==
LOC: ERS 22:30 → EEVIPCON 22:30 → CCU 10-07 02:22 → T4-A 10-09 10:01
PROVIDERS: ADMIT Family Medicine; ATTEND Family Medicine
PROC: 05H533Z Insertion of Infusion Device into Right Subclavian Vein, Percutaneous Approach (ICD-10-PCS; 2017-10-07)
PROC: B546ZZA Ultrasonography of Right Subclavian Vein, Guidance (ICD-10-PCS; 2017-10-07)
PROC: 02HV33Z Insertion of Infusion Device into Superior Vena Cava, Percutaneous Approach (ICD-10-PCS; 2017-10-08)
PROC: 05PYX3Z Removal of Infusion Device from Upper Vein, External Approach (ICD-10-PCS; 2017-10-08)
PROC: 0BDC8ZX Extraction of Right Upper Lung Lobe, Via Natural or Artificial Opening Endoscopic, Diagnostic (ICD-10-PCS; principal; 2017-10-11)
PROC: 0B9D8ZX Drainage of Right Middle Lung Lobe, Via Natural or Artificial Opening Endoscopic, Diagnostic (ICD-10-PCS; 2017-10-11)
PROC: 0B9L8ZX Drainage of Left Lung, Via Natural or Artificial Opening Endoscopic, Diagnostic (ICD-10-PCS; 2017-10-11)
PROC: 0B9C8ZX Drainage of Right Upper Lung Lobe, Via Natural or Artificial Opening Endoscopic, Diagnostic (ICD-10-PCS; 2017-10-11)
DX: B20 Human immunodeficiency virus [HIV] disease (principal); B59 Pneumocystosis; J96.01 Acute respiratory failure with hypoxia; A41.89 Other specified sepsis; R65.20 Severe sepsis without septic shock; E87.2 Acidosis; E87.3 Alkalosis; B35.1 Tinea unguium; R04.2 Hemoptysis; E87.6 Hypokalemia; Z87.891 Personal history of nicotine dependence; B35.4 Tinea corporis; B18.2 Chronic viral hepatitis C
CPT/HCPCS: 36415; 71010; 71020; 71260; 80048; 80053; 81003; 82550; 82553; 82805; 83605; 83615; 83735; 84443; 84484; 85025; 85048; 85379; 86361; 86480; 86701; 86702; 86780; 87040; 87070; 87086; 87102; 87116; 87205; 87206; 87389; 87449; 87536; 87899; 88112; 88305; 88312; 93005; 94640; 94760; 96361; 96365; 96372; 96375; 99152; 99153; 99292; A4216; G8978-GP-CJ; G8979-GP-CI; J0456; J0696; J1650; J1885; J1940; J1956; J2001; J2250; J2270; J2543; J2550; J2920; J3010; J3490; J7050; J7070; J7506; J7620; Q0162